=== PATIENT | female | born 1995 | race Caucasian/White ===

== ENCOUNTER 2018-02-07 00:09 | Emergency (ER) | payer SELFPAY ==
[~2018-02-07] VITALS: Ht 165.1 cm; Wt 54.6 kg
[2018-02-07 00:15] VITALS: BP 125/70; PULSE 103; RESP 16; TEMP 98.9; O2SAT 98
[2018-02-07 00:56] VITALS: BP 125/70; PULSE 103; RESP 16; TEMP 98.9; O2SAT 98
[2018-02-07] MEDS ORDERED: KETOROLAC TROMETHAMINE 30 MG/ML (IVP) VIAL IV PUSH ONE (02:30)
[2018-02-07] MEDS ORDERED: CLINDAMYCIN PHOS 600 MG/4 ML VIAL IM ONE (02:30)
[2018-02-07] MEDS ORDERED: CLINDAMYCIN PHOS 900 MG/6 ML VIAL IM ONE (02:30)
--- NOTE | 2018-02-07 03:04 | RADRPT ---
EXAM DATE: 02/07/2018 2:56 AM EDT AGE/SEX: 22 years / Female INDICATIONS: Leg swelling. CLINICAL DATA: This is the patient's initial encounter. Patient reports that signs and symptoms have been present for 1 day and indicates a pain score of 7/10. MEDICAL/SURGICAL HISTORY: . . COMPARISON: No prior exams available for comparison. TECHNIQUE: Venous ultrasound of both lower extremities was performed from the inguinal ligament to t he proximal calf. Real-time, color Doppler and spectral tracing, compression and augmentation techni ques were used. FINDINGS: There is normal compressibility of the deep venous system from the inguinal region to the proximal ca lf. No echogenic clot is seen in the lumen of the common femoral, femoral, popliteal, and posterior tibial veins. There is a normal response of the venous system to proximal and distal augmentation an d respiration. CONCLUSION: No evidence of left lower extremity DVT. Electronically signed by: Zohaib Jacob MD 02/07/2018 3:02 AM EDT
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
[2018-02-07 03:17] LABS: AUTOMATED NEUTROPHIL # 6.3 TH/MM3 (1.8-7.7); BASOPHIL % 0.2 % (0.0-2.0); EOSINOPHIL # 0.1 TH/MM3 (0-0.4); EOSINOPHIL % 0.9 % (0.0-4.0); HEMATOCRIT 35.9 % (35.0-46.0); HEMOGLOBIN 12.3 GM/DL (11.6-15.3); LYMPH % 15.6 % (9.0-44.0); LYMPHOCYTE # 1.2 TH/MM3 (1.0-4.8); MEAN CORPUSCULAR HEMOGLOBIN 29.7 PG (27.0-34.0); MEAN CORPUSCULAR HGB CONC 34.1 % (32.0-36.0); MEAN PLATELET VOLUME 7.7 FL (7.0-11.0); MONO % 3.2 % (0.0-8.0); MONOCYTE # 0.3 TH/MM3 (0-0.9); NEUT % 80.1 % (16.0-70.0); PLATELET COUNT 441 TH/MM3 (150-450); RED BLOOD COUNT 4.13 MIL/MM3 (4.00-5.30); RED CELL DISTRIBUTION WIDTH 12.8 % (11.6-17.2); WHITE BLOOD COUNT 7.9 TH/MM3 (4.0-11.0)
[2018-02-07 03:24] LABS: CHLORIDE 103 MEQ/L (98-107); SODIUM (NA) 137 MEQ/L (136-145)
[2018-02-07 03:27] LABS: CALCIUM 9.3 MG/DL (8.5-10.1)
[2018-02-07 03:28] LABS: ALBUMIN 3.3 GM/DL (3.4-5.0); BICARBONATE 25.6 MEQ/L (21.0-32.0); BLOOD UREA NITROGEN 11 MG/DL (7-18); GLUCOSE,RANDOM 86 MG/DL (74-106)
[2018-02-07 03:31] LABS: ALT (GPT) 23 U/L (9-42); AST (GOT) 24 U/L (16-38); CREATININE 0.81 MG/DL (0.50-1.00); GLOMERULAR FILTRATION RATE 90 ML/MIN (>89)
[2018-02-07 03:32] LABS: TOTAL BILIRUBIN ADULT 0.6 MG/DL (0.2-1.0); TOTAL PROTEIN 8.4 GM/DL (6.4-8.2)
[2018-02-07 03:34] LABS: ALKALINE PHOSPHATASE 72 U/L (45-117)
[2018-02-07] MEDS ORDERED: CLINDAMYCIN 600 MG/NS PREMIX 50 ML IV ONE (03:45)
--- NOTE | 2018-02-07 03:49 | RADRPT ---
EXAM DATE: 02/07/2018 3:44 AM EDT AGE/SEX: 22 years / Female INDICATIONS: Pain and swelling to left ankle. No known injury. CLINICAL DATA: This is the patient's initial encounter. Patient reports that signs and symptoms have been present for 1 week and indicates a pain score of 7/10. MEDICAL/SURGICAL HISTORY: None. None. COMPARISON: No prior exams available for comparison. FINDINGS: 3 views of left ankle. Bone alignment within normal limits. No evidence of fracture. Ankle mortise in tact. No evidence of focal bone erosion. Diffuse soft tissue swelling. CONCLUSION: Diffuse soft tissue swelling. Left ankle series otherwise within normal limits. Electronically signed by: Zohaib Jacob MD 02/07/2018 3:48 AM EDT
--- NOTE | 2018-02-07 03:52 | RADRPT ---
EXAM DATE: 02/07/2018 3:46 AM EDT AGE/SEX: 22 years / Female INDICATIONS: Pain and swelling to left foot. No known injury. CLINICAL DATA: This is the patient's initial encounter. Patient reports that signs and symptoms have been present for 1 week and indicates a pain score of 7/10. MEDICAL/SURGICAL HISTORY: None. None. COMPARISON: No prior exams available for comparison. FINDINGS: 3 views of the left foot. Bone alignment within normal limits. No evidence of fracture. Bone minerali zation within normal limits. No evidence of joint narrowing. No evidence of focal bone erosion. Diffu se soft tissue swelling. CONCLUSION: Diffuse soft tissue swelling. Otherwise within normal limits. Electronically signed by: Zohaib Jacob MD 02/07/2018 3:50 AM EDT
[2018-02-07] MEDS ORDERED: IBUP-232 PO (04:00)
[2018-02-07] MEDS ORDERED: CLIN300C5 PO (04:00)
[2018-02-07 04:04] VITALS: BP 111/64; PULSE 89; RESP 16; O2SAT 100
[2018-02-07 04:53] VITALS: BP 114/64
== END 2018-02-07 04:50 | disposition home or self-care (01) ==
LOC: PHED 00:09
DX: S93.602A Unspecified sprain of left foot, initial encounter (principal); B95.62 Methicillin resistant Staphylococcus aureus infection as the cause of diseases classified elsewhere; F12.90 Cannabis use, unspecified, uncomplicated; X58.XXXA Exposure to other specified factors, initial encounter; Z72.0 Tobacco use
CPT/HCPCS: 73610; 73630; 80053; 83605; 84703; 85025; 86403; 87040; 87070; 87186; 93971; 96365; 96375; 99285; J1885; L3260

== ENCOUNTER 2018-10-04 23:32 | Inpatient (IN) ==
[2018-10-04] MEDS ORDERED: Ibuprofen 600 MG Tablet PO ONE (23:48)
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
[2018-10-05] MEDS ORDERED: Clindamycin 900 mg/NS Premix 900 MG/50 ML PIGGYBACK IV.SIG ONE (01:15)
[2018-10-05] MEDS ORDERED: Sod Chloride 0.9% Inj 1,000 ML IV.SIG SCH (01:15)
[2018-10-05 01:46] LABS: Baso % (Auto) 0.3 % (0.0-2.0); Eos % (Auto) 0.1 % (0.0-4.0); Hemoglobin 13.4 gm/dL (11.6-15.3); Lymph % (Auto) 14.4 % (9.0-44.0); Mean Corpuscular HGB Conc 34.3 % (32.0-36.0); Mean Corpuscular Hemoglobin 28.6 pg (27.0-34.0); Mean Corpuscular Volume 83.5 fL (80.0-100.0); Mean Platelet Volume 7.7 fL (7.0-11.0); Mono # (Auto) 1.1 th/mm3 (0.0-0.9); Mono % (Auto) 7.5 % (0.0-8.0); Neut # (Auto) 10.9 th/mm3 (1.8-7.7); Neut % (Auto) 77.7 % (16.0-70.0); Platelet Count 322 th/mm3 (150-450); Red Blood Count 4.67 mil/mm3 (4.00-5.30); Red Cell Distribution Width 16.9 % (11.6-17.2); White Blood Count 14.1 th/mm3 (4.0-11.0)
[2018-10-05 02:01] LABS: Anion Gap 5 meq/L (5-15); Blood Urea Nitrogen 8 mg/dL (7-18); Calcium 8.5 mg/dL (8.5-10.1); Carbon Dioxide 25.8 meq/L (21.0-32.0); Chloride 103 meq/L (98-107); Glomerular Filtration Rate Greater Than 89 mL/min (>89); Glucose,Random 143 mg/dL (74-106); Potassium 3.4 meq/L (3.5-5.1); Sodium 134 meq/L (136-145)
[2018-10-05] MEDS ORDERED: Gadobutrol PF 2 MMOL/2 ML Vial (for RAD) IV.SIG ONE (02:38)
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
[2018-10-05] MEDS ORDERED: Acetaminophen 325 MG Tablet PO PRN (04:05)
[2018-10-05] MEDS ORDERED: Bisacodyl 10 MG Supp RECTAL PRN (04:05)
[2018-10-05] MEDS ORDERED: Naloxone Inj 0.4 MG/ML Vial IV.PUSH PRN (04:05)
[2018-10-05] MEDS ORDERED: Morphine Inj 4 MG/ML Vial IV.PUSH PRN (04:05)
[2018-10-05] MEDS: Sod Chloride 0.9% Inj 1,000 ML IV.SIG SCH ×2 (04:15→06:17)
[2018-10-05] MEDS: Sod Chloride 0.9% Inj 1,000 ML IV.CONT SCH ×2 (04:42→17:16)
[2018-10-05] MEDS: Clindamycin 900 mg/NS Premix 900 MG/50 ML PIGGYBACK IV.SIG SCH ×2 (09:22→17:54)
[2018-10-05 10:23] LABS: Bacteria,Urine Rare /hpf; Bilirubin,Urine Negative (Negative); Clarity,Urine Hazy (Clear); Color,Urine Yellow (Yellw/Straw); Glucose,Urine (UA) Negative (Negative); Leukocyte Esterase,Urine Negative (Negative); Nitrite,Urine Negative (Negative); Specific Gravity,Urine 1.024 (1.002-1.035); Squamous Epithelial Cell,Urine 1 /hpf (0-5)
[2018-10-05 10:27] LABS: Amphetamine Screen,Urine Pos (Neg); Barbiturate Screen,Urine Neg (Neg); Cannabinoid Screen,Urine Pos (Neg); Cocaine Screen,Urine Neg (Neg)
[2018-10-05 10:28] LABS: Opiate Screen,Urine Pos (Neg)
[2018-10-05] MEDS: Morphine Inj 4 MG/ML Vial IV.PUSH PRN ×4 (10:43→20:29)
[2018-10-05] MEDS: Senna/Docusate Sodium 8.6/50 MG Tablet PO SCH ×2 (10:49→20:28)
[2018-10-05 13:50] LABS: Hepatitits B Surface Antigen Nonreactive (Nonreactive)
[2018-10-05 14:20] LABS: Hepatitis A IgM Antibody Nonreactive (Nonreactive)
[2018-10-05] MEDS: Ketorolac Inj 30 MG/ML (IVP) Vial IV.PUSH PRN ×2 (17:55→23:45)
--- NOTE | 2018-10-05 20:38 | P.CONOP ---
[facility] Orthopedics Consult Note - [facility] Consult date: 10/05/18 Requesting physician: Irlanda Murillo R3 Consult reason: other (abscess) Chief complaint: Cellulitis; SIRS; IVDA R Humerus Abscess Narrative: This is a 22 year old IVDU who came to the ED with complaints of left arm pain and swelling that started 4 days ago. She was trying to inject into the arm and missed the vein. She complains of severe pain to the left upper arm. She states she has numbness and tingling to the tips of all her fingers on the left. She denies pain or numbness elsewhere. Review of Systems All other systems reviewed negative except as stated in [facility] PMFSH - History History Provided By: Patient - Medical / Surgical Hx Neg / Unobtainable Medical Problems Denied: Yes - Medical History Medical History: Medical History (Last Reviewed 10/05/18 @ 20:25 by Laila Matute MD) Patient denies significant medical history - Surgical History Surgical History: Surgical History (Last Reviewed 10/05/18 @ 20:25 by Laila Matute MD) No history of previous surgery - Family History Family History: Family History (Last Reviewed 10/05/18 @ 20:25 by Laila Matute MD) Other Family history normal - Social History I have reviewed the patient's Social History: Yes - Tobacco History Second Hand Smoke Exposure: No Tobacco Use In Past 30 Days: No Smoking Status: Never smoker Tobacco Type: Cigarettes - Alcohol History How Often Do You Have a Drink Containing Alcohol: Never - Substance Use History Substance History: Active Abuse - Substance Use Type Heroin Status: Active Route Used: Intravenously Marijuana Status: Active - Travel History Recent Travel in the [place] Within the Last 8 Weeks: No Recent Travel Out of the Country Within the Last 8 Weeks: No - Immunization History Tetanus Immunization: Never Vaccinated Hx Influenza Vaccine This Season: No Medications and Allergies Active Medications: Active Medications Al Hydroxide/Mg Hydroxide (Milk Of Magnesia Liq) 30 ml PO Q12H PRN PRN Reason: Mild Constipation Bisacodyl (Dulcolax Supp) 10 mg RECTAL DAILY PRN PRN Reason: SEVERE CONSITIPATION Sodium Chloride (Ns Inj) 1,000 mls @ 100 mls/hr IV.CONT .Q10H [facility] Last Infusion: 10/05/18 19:38 Dose: Infused Clindamycin/Sodium Chloride (Cleocin 900 Mg/Ns Premix) 900 mg in 50 mls @ 100 mls/hr IV.SIG Q8H [facility] Last Infusion: 10/05/18 19:38 Dose: Infused Ketorolac Tromethamine (Toradol Inj) 15 mg IV.PUSH Q6H PRN PRN Reason: PAIN 1-10 AND/OR FEVER >101F Stop: 10/10/18 23:59 Last Admin: 10/05/18 17:55 Dose: 15 mg Lactulose (Lactulose Liq) 30 ml PO DAILY PRN PRN Reason: SEVERE CONSITIPATION Morphine Sulfate (Morphine Inj) 2 mg IV.PUSH Q3H PRN PRN Reason: BREAKTHROUGH PAIN Morphine Sulfate (Morphine Inj) 4 mg IV.PUSH Q3H PRN PRN Reason: Pain 5-10; If Uable To Take Po Last Admin: 10/05/18 17:11 Dose: 4 mg Naloxone HCl (Narcan Inj) 0.4 mg IV.PUSH UNSCH PRN PRN Reason: SEE LABEL COMMENTS Ondansetron HCl (Zofran Inj) 4 mg IV.PUSH Q6H PRN PRN Reason: NAUSEA OR VOMITING Senna/Docusate Sodium (Mariama-Colace) 1 tab PO BID [facility] Last Admin: 10/05/18 10:49 Dose: Not Given Sennosides (Senokot) 17.2 mg PO Q12H PRN PRN Reason: Moderate Constipation Sodium Chloride (Ns Flush) 2 ml IV.FLUSH BID [facility] Last Admin: 10/05/18 10:49 Dose: 2 ml Sodium Chloride (Ns Flush) 2 ml IV.FLUSH PRN PRN PRN Reason: FLUSH AFTER USING IV ACCESS Allergies Allergy/AdvReac Type Severity Reaction Status Date / Time No Known Allergies Allergy Unverified 02/07/18 01:05 Home Medications Medication Instructions Recorded Confirmed Type No Known Home Medications 06/20/18 10/04/18 History Exam Vital signs: Vital Signs 10/04/18 23:35 10/04/18 23:37 10/05/18 01:18 Temperature 99.2 F Pulse Rate 111 H 105 H 116 H Respiratory Rate 18 20 22 Blood Pressure 133/81 135/73 125/69 Pulse Oximetry 100 97 99 10/05/18 04:13 10/05/18 05:00 10/05/18 07:17 Temperature Pulse Rate 95 H 85 91 H Respiratory Rate 22 16 18 Blood Pressure 117/55 L 118/60 113/62 Pulse Oximetry 100 99 100 10/05/18 09:00 10/05/18 12:08 10/05/18 16:10 Temperature 98.8 F 102.6 F H Pulse Rate 105 H 103 H 114 H Respiratory Rate 17 17 Blood Pressure 111/55 L 127/57 L Pulse Oximetry 96 100 Intake & Output 10/05/18 10/05/18 10/06/18 06:59 18:59 06:59 Intake Total 2049 50 / 50 1050 / 1050 Balance 2049 50 / 50 1050 / 1050 Weight 45.359 kg Intake: IV 2049 50 / 50 1050 / 1050 NS Inj 1,000 ML @ 100 mls/hr IV 1000 / 1000 .CONT .Q10H [facility] Rx#:[id number] Cleocin 900 mg/NS Premix 900 mg 50 / 50 50 / 50 50 / 50 In 50 ml @ 100 mls/hr IV.SIG Q8H [facility] Rx#:[id number] NS Inj 1,000 ML @ 2000 mls/hr 1999 / 1999 IV.SIG Q30M [facility] Rx#:[id number] Other: # Voids 2 4 # Bowel Movements 0 - Constitutional mild distress - Routine HEENT Exam Head: Present: normocephalic - Routine Neck Exam Present: supple - Routine Respiratory Exam Absent: accessory muscle use - Routine Cardiovascular Exam Present: RRR - Routine Extremities Exam Comments: left arm very tender to palpation from the antecubital fossa up to the shoulder. She has erythema and edema in this area. There is no readily palpable fluid collection nor draining wound. She is nontender about the forearm or hand. She has numbness in the fingertips but otherwise sensation is intact. Unable to move elbow or shoulder due to patient's pain level. 2+ radial pulse and motor intact distally. Remainder of extremities are unremarkable. Results - Labs Result Diagrams: 10/06/18 07:30 10/06/18 07:30 Labs: Laboratory Results - last 24 hr 10/05/18 10/05/18 10/05/18 01:26 01:26 01:26 WBC 14.1 H RBC 4.67 Hgb 13.4 Hct 39.0 MCV 83.5 MCH 28.6 MCHC 34.3 RDW 16.9 Plt Count 322 MPV 7.7 Prelim Diff (Auto) Slide review pending Neut % (Auto) 77.7 H Lymph % (Auto) 14.4 [place] % (Auto) 7.5 Eos % (Auto) 0.1 Baso % (Auto) 0.3 Neut # (Auto) 10.9 H Lymph # (Auto) 2.0 [place] # (Auto) 1.1 H Eos # (Auto) 0.0 Baso # (Auto) 0.0 WBC Differential . Diff Scan Auto diff confirmed Differential Comment . ESR 56 H Sodium 134 L Potassium 3.4 L Chloride 103 Carbon Dioxide 25.8 Anion Gap 5 BUN 8 Creatinine 0.70 Estimated GFR Greater than 89 Random Glucose 143 H Lactic Acid Calcium 8.5 C-Reactive Protein Urine Color Urine Clarity Urine pH Ur Specific [place] Urine Protein Urine Glucose (UA) Urine Ketones Urine Occult Blood Urine Nitrate Urine Bilirubin Urine Urobilinogen Ur Leukocyte Esterase Urine RBC Urine WBC Ur Squamous Epith Cells Urine Bacteria Micro UA Comment Ur Microscopic Review Urine Culture Comments Urine Opiates Screen Ur Barbiturates Screen Ur Amphetamines Screen U Benzodiazepines Scrn Urine Cocaine Screen U Cannabinoids Screen Hepatitis A IgM Ab Hep Bs Antigen Hep B Core IgM Ab Hep C IgG Ab HIV 1&2 Ab/P24 Ag 4thGn 10/05/18 10/05/18 10/05/18 01:26 03:35 10:10 WBC RBC Hgb Hct MCV MCH MCHC RDW Plt Count MPV Prelim Diff (Auto) Neut % (Auto) Lymph % (Auto) [place] % (Auto) Eos % (Auto) Baso % (Auto) Neut # (Auto) Lymph # (Auto) [place] # (Auto) Eos # (Auto) Baso # (Auto) WBC Differential Diff Scan Differential Comment ESR Sodium Potassium Chloride Carbon Dioxide Anion Gap BUN Creatinine Estimated GFR Random Glucose Lactic Acid 1.4 Calcium C-Reactive Protein 6.52 H Urine Color Yellow Urine Clarity Hazy H Urine pH 5.0 Ur Specific [place] 1.024 Urine Protein Negative Urine Glucose (UA) Negative Urine Ketones Negative Urine Occult Blood Negative Urine Nitrate Negative Urine Bilirubin Negative Urine Urobilinogen Less than 2 Ur Leukocyte Esterase Negative Urine RBC 1 Urine WBC 11 H Ur Squamous Epith Cells 1 Urine Bacteria Rare H Micro UA Comment Culture indicated Ur Microscopic Review Not Reportable Urine Culture Comments Culture indicated Urine Opiates Screen Ur Barbiturates Screen Ur Amphetamines Screen U Benzodiazepines Scrn Urine Cocaine Screen U Cannabinoids Screen Hepatitis A IgM Ab Hep Bs Antigen Hep B Core IgM Ab Hep C IgG Ab HIV 1&2 Ab/P24 Ag 4thGn 10/05/18 10/05/18 10/05/18 10:10 12:30 12:30 WBC RBC Hgb Hct MCV MCH MCHC RDW Plt Count MPV Prelim Diff (Auto) Neut % (Auto) Lymph % (Auto) [place] % (Auto) Eos % (Auto) Baso % (Auto) Neut # (Auto) Lymph # (Auto) [place] # (Auto) Eos # (Auto) Baso # (Auto) WBC Differential Diff Scan Differential Comment ESR Sodium Potassium Chloride Carbon Dioxide Anion Gap BUN Creatinine Estimated GFR Random Glucose Lactic Acid Calcium C-Reactive Protein Urine Color Urine Clarity Urine pH Ur Specific [place] Urine Protein Urine Glucose (UA) Urine Ketones Urine Occult Blood Urine Nitrate Urine Bilirubin Urine Urobilinogen Ur Leukocyte Esterase Urine RBC Urine WBC Ur Squamous Epith Cells Urine Bacteria Micro UA Comment Ur Microscopic Review Urine Culture Comments Urine Opiates Screen Pos H Ur Barbiturates Screen Neg Ur Amphetamines Screen Pos H U Benzodiazepines Scrn Neg Urine Cocaine Screen Neg U Cannabinoids Screen Pos H Hepatitis A IgM Ab Nonreactive Hep Bs Antigen Nonreactive Hep B Core IgM Ab Nonreactive Hep C IgG Ab Reactive H HIV 1&2 Ab/P24 Ag 4thGn Nonreactive - Diagnostic results Imaging: Impressions Elbow X-Ray 10/05/18 00:01 CONCLUSION: 1. No acute fracture. Humerus X-Ray 10/05/18 00:01 CONCLUSION: 1. No acute fracture. Humerus MRI 10/05/18 01:23 CONCLUSION: 1. 2.0 x 0.9 cm abscess in the anterolateral distal biceps region with regional cellulitis. 2. Subtle elbow joint effusion without definitive abnormal enhancement. 3. No evidence for osteomyelitis. Assessment and Plan - Assessment and Plan 22 year old female with left arm cellulitis and small abscess noted on CT Plan: Recommend IR drainage of abscess under image guidance. Will defer any surgical intervention at this time. Continue antibiotics - currently Clindamycin, will start vancomycin for broader spectrum coverage. Consider ID consult.
[2018-10-05] MEDS: Vancomycin Inj 1,000 MG in Sodium Chlor 0.9% Inj 250 ML IV.SIG SCH (23:45)
[2018-10-06] MEDS: Sod Chloride 0.9% Inj 1,000 ML IV.CONT SCH ×4 (01:26→23:40)
[2018-10-06] MEDS: Clindamycin 900 mg/NS Premix 900 MG/50 ML PIGGYBACK IV.SIG SCH ×3 (01:27→16:35)
[2018-10-06] MEDS: Morphine Inj 4 MG/ML Vial IV.PUSH PRN ×2 (01:29→04:43)
[2018-10-06] MEDS ORDERED: LORazepam 1 MG Tablet PO PRN (07:57)
[2018-10-06] MEDS: Senna/Docusate Sodium 8.6/50 MG Tablet PO SCH ×2 (08:05→20:50)
[2018-10-06] MEDS: Ketorolac Inj 30 MG/ML (IVP) Vial IV.PUSH PRN ×3 (08:06→20:45)
[2018-10-06 08:41] LABS: Baso % (Auto) 0.2 % (0.0-2.0); Eos % (Auto) 0.1 % (0.0-4.0); Hematocrit 35.5 % (35.0-46.0); Hemoglobin 12.1 gm/dL (11.6-15.3); Lymph % (Auto) 6.1 % (9.0-44.0); Mean Corpuscular Hemoglobin 28.8 pg (27.0-34.0); Mean Corpuscular Volume 84.5 fL (80.0-100.0); Mean Platelet Volume 7.9 fL (7.0-11.0); Mono # (Auto) 1.1 th/mm3 (0.0-0.9); Mono % (Auto) 6.4 % (0.0-8.0); Neut # (Auto) 14.5 th/mm3 (1.8-7.7); Neut % (Auto) 87.2 % (16.0-70.0); Platelet Count 343 th/mm3 (150-450); Red Cell Distribution Width 16.8 % (11.6-17.2); White Blood Count 16.6 th/mm3 (4.0-11.0)
[2018-10-06 08:59] LABS: Albumin 2.3 g/dL (3.4-5.0); Anion Gap 10 meq/L (5-15); Aspartate Aminotransferase 22 U/L (16-38); Blood Urea Nitrogen 8 mg/dL (7-18); Calcium 8.5 mg/dL (8.5-10.1); Carbon Dioxide 22.3 meq/L (21.0-32.0); Chloride 103 meq/L (98-107); Glomerular Filtration Rate Greater Than 89 mL/min (>89); Glucose,Random 114 mg/dL (74-106); Potassium 3.5 meq/L (3.5-5.1); Sodium 135 meq/L (136-145)
[2018-10-06 09:00] LABS: Alanine Aminotransferase 37 U/L (9-42)
[2018-10-06 09:02] LABS: Alkaline Phosphatase 99 U/L (45-117); Total Protein 6.9 g/dL (6.4-8.2)
[2018-10-06] MEDS ORDERED: LORazepam 0.5 MG Tablet PO PRN (09:30)
[2018-10-06] MEDS ORDERED: Vancomycin Consult Pharmacy OTHER PRN (10:04)
[2018-10-06] MEDS: Vancomycin Inj 1,000 MG in Sodium Chlor 0.9% Inj 250 ML IV.SIG SCH ×3 (10:05→23:41)
--- NOTE | 2018-10-06 10:30 | P.PNFP ---
Subjective Interval history: Patient seen and examined at bedside this morning. Patient had a fever yesterday of 102.6F and repeat blood cultures were drawn at that time. Today patient reports that she has had a hard time with going to sleep. I also did a page stating that patient was very anxious this morning and patient was given Ativan x1 of 1 mg. Ativan dose was decreased to 0.5 as needed because patient was very sleepy during exam this morning however she was responding to questions and following commands. Vital signs within normal limits this morning. No other complaints. Results - Labs Result diagrams: 10/06/18 07:30 10/06/18 07:30 Abnormal lab results 10/05/18 10/06/18 10/06/18 Range/Units 12:30 07:30 07:30 WBC 16.6 H (4.0-11.0) th/mm3 Neut % (Auto) 87.2 H (16.0-70.0) % Lymph % (Auto) 6.1 L (9.0-44.0) % Neut # (Auto) 14.5 H (1.8-7.7) th/mm3 [place] # (Auto) 1.1 H (0.0-0.9) th/mm3 Sodium 135 L (136-145) meq/L Random Glucose 114 H (74-106) mg/dL Albumin 2.3 L (3.4-5.0) g/dL Hep C IgG Ab Reactive H (Nonreactive) Short CBC 10/06/18 Range/Units 07:30 WBC 16.6 H (4.0-11.0) th/mm3 Hgb 12.1 (11.6-15.3) gm/dL Hct 35.5 (35.0-46.0) % Plt Count 343 (150-450) th/mm3 BMP 10/06/18 07:30 Sodium 135 L Potassium 3.5 Chloride 103 Carbon Dioxide 22.3 BUN 8 Creatinine 0.61 Calcium 8.5 Liver Function 10/06/18 Range/Units 07:30 Total Bilirubin 0.8 (0.2-1.0) mg/dL AST 22 (16-38) U/L ALT 37 (9-42) U/L Alkaline Phosphatase 99 (45-117) U/L Albumin 2.3 L (3.4-5.0) g/dL Physical Exam Vital signs: Vital Signs 10/05/18 12:08 10/05/18 16:10 10/05/18 20:00 Temperature 98.8 F 102.6 F H 98.3 F Pulse Rate 103 H 114 H 92 H Respiratory Rate 17 17 18 Blood Pressure 111/55 L 127/57 L 115/55 L Pulse Oximetry 96 100 100 10/06/18 00:00 10/06/18 04:00 Temperature 98.7 F 98.3 F Pulse Rate 101 H 101 H Respiratory Rate 20 18 Blood Pressure 117/71 123/69 Pulse Oximetry 100 95 Intake & Output 10/05/18 10/06/18 10/06/18 18:59 06:59 18:59 Intake Total 50 / 50 1350 / 1350 50 / 50 Output Total 3 / 3 Balance 50 / 50 1347 / 1347 50 / 50 Weight 45 kg Intake: IV 50 / 50 1350 / 1350 50 / 50 NS Inj 1,000 ML @ 100 mls/hr IV 1000 / 1000 .CONT .Q10H [facility] Rx#:[id number] Cleocin 900 mg/NS Premix 900 mg 50 / 50 100 / 100 50 / 50 In 50 ml @ 100 mls/hr IV.SIG Q8H [facility] Rx#:[id number] Vancomycin Inj 1,000 MG In NS 250 / 250 Inj 250 ML @ 250 mls/hr IV.SIG Q12H [facility] Rx#:[id number] Output: Urine 3 / 3 Other: # Voids 4 1 Date of Last Bowel Movement 10/03/18 # Bowel Movements 0 Narrative: GENERAL: 22 yo F, thin, sleepy but responding to questions and following commands SKIN: Warm and dry. ARM: Skin on left arm proximal to elbow is erythematous and entire proximal arm is tender to touch, erythema improving, erythema has regressed from demarked area. Some scratches noted on distal legs but no track sanon. MUSCULOSKELETAL: Left arm mildly swollen proximally but otherwise no MSK defects , improving. Extremities without clubbing, cyanosis, or edema. No obvious deformities. Patient maintains the left arm flexed at ~90 degrees at the elbow. Handgrip equal bilaterally. Radial artery pulse equal bilaterally 2+. ENT: No nasal bleeding or discharge. Mucous membranes pink and moist. NECK: Trachea midline. No JVD. CARDIOVASCULAR: Normal S1-S2, no murmurs on auscultation. RESPIRATORY: No accessory muscle use. Clear to auscultation bilaterally. GASTROINTESTINAL: Abdomen soft, non-tender, nondistended. Hepatic and splenic margins not palpable. NEUROLOGICAL: sleepy pt attributed this to not getting enough sleep overnight. No obvious cranial nerve deficits. Motor grossly within normal limits. Five out of 5 muscle strength in the arms and legs. Normal speech. PSYCHIATRIC: Insight poor but has capacity based on current exam to make medical decisions. Assessment and Plan - Assessment (1) Sepsis due to skin infection Code(s): L03.90 - Cellulitis, unspecified; A41.9 - Sepsis, unspecified organism Status: Acute Plan: 22-year-old female presenting with left arm cellulitis and elbow MRI showing abscess 2 cm x 0.9cm in size with trace joint effusion. Location is anterior lateral aspect of upper extremity proximal to elbow joint. Left humerus and elbow x-rays unremarkable. Evaluation for bedside I&D in the ED occurred but patient too painful for significant attempt. Patient meets sirs criteria with WBC 14K and tachycardia greater than 90 bpm thus will admit for sepsis evaluation and treatment. Her ESR is ESR 56. Lactic acid 1.4, wnl. CBC and CMP reviewed and otherwise unremarkable. Received 2 L normal saline bolus and 900 mg IV dose of clindamycin in ED. She reports concern regarding transportation from the hospital thus case management will be consulted for assistance. Clinical plan as follows: -Admitted to inpatient for IV antibiotics for abscess, meeting sepsis criteria -Monitor neuro checks every 4 hours given numbness in the distal left extremity , no other focal deficits noted at time of admission -Continue clindamycin 900 mg IV every 8 hours -Orthopedic consult for possible I&D, appreciate recommendations IR consulted for u/s guided I&D Vanc started -Occupational Therapy consult No occupational therapy recommendations upon discharge -Case management consult Urinalysis: Negative UDS: Positive for opiates, amphetamines, and cannabinoids Positive Hep C, patient informed of dx today, all questions answered -Pain control:Toradol scheduled, morphine for breakthrough -ativan 0.5mg PRN for anxiety Follow up: blood and urine cultures echo (2) Abscess of left upper extremity Code(s): L02.414 - Cutaneous abscess of left upper limb Status: Acute Plan: See plan for Sepsis due to Skin Infection (3) Cellulitis of left upper extremity Code(s): L03.114 - Cellulitis of left upper limb Status: Acute Plan: See plan for Sepsis due to Skin Infection (4) Intravenous drug abuse Code(s): F19.10 - Other psychoactive substance abuse, uncomplicated Status: Chronic Plan: Patient is chronic IV drug user and notes use of multiple skin sites for heroin , last use 10/04. She does not express any interest in quitting. -Medical management for infection -Case management for offering patient community resources if interested (5) Nutrition, metabolism, and development symptoms Code(s): R63.8 - Other symptoms and signs concerning food and fluid intake Status: Acute Plan: Fluids: IVF at 100mls/hr Electrolytes: Replete as needed Diet: regular DVT ppx: SCDs - Assessment and Plan Fluids: NS @ 100ml/hr but tolerating p.o., n.p.o. for possible procedure Electrolytes: monitor and replete as needed. Very mild hyponatremia and hypokalemia on admission, can replete with diet Nutrition: NPO on admission, regular diet after ortho evaluation DVT Prophylaxis: Early ambulation. SCDs if not ambulatory. GI Prophylaxis: None indicated PRN anti-HTN: None indicated on admission. Consider clonidine 0.1mg PO PRN for SBP > 180/ and/or DBP > 100
[2018-10-06] MEDS: LORazepam 0.5 MG Tablet PO PRN ×2 (14:08→18:20)
--- NOTE | 2018-10-06 16:34 | US ---
EXAM DATE: 10/06/2018 4:15 PM EST AGE/SEX: 22 years / Female INDICATIONS: Isolated swelling on left arm. CLINICAL DATA: This is the patient's initial encounter. Patient reports that signs and symptoms have been present for 1 day and indicates a pain score of 8/10. MEDICAL/SURGICAL HISTORY: . IVDU. MRSA. None. COMPARISON: [facility] – [place], MR HUMERUS LEFT W & W/O CONTRAST, 10/05/2018.. . FINDINGS: Grayscale and color Doppler images of the distal left humerus reveal hyperemia. There is thrombosis o f the cephalic vein with thickening of the wall. There is a fluid collection surrounding the cephalic vein within its distal aspect measuring 4.2 x 1.6 x 2.4 cm. CONCLUSION: 1. Thrombophlebitis of the cephalic vein. 2. 4.2 x 2.4 x 1.6 cm fluid collection surrounding the cephalic vein possibly relating to an abscess . Electronically signed by: Cali Magana MD Board Certified Radiologist 10/06/2018 4:32 PM EST
--- NOTE | 2018-10-06 16:56 | P.PNOP ---
Subjective Interval history: Patient is currently sedated in the room. She was reportedly medicated with Ativan. Mother at the bedside Physical Exam Vital signs: Vital Signs 10/05/18 20:00 10/06/18 00:00 10/06/18 04:00 Temperature 98.3 F 98.7 F 98.3 F Pulse Rate 92 H 101 H 101 H Respiratory Rate 18 20 18 Blood Pressure 115/55 L 117/71 123/69 Pulse Oximetry 100 100 95 10/06/18 08:00 10/06/18 09:00 10/06/18 12:00 Temperature 98.0 F 98.4 F Pulse Rate 99 H 113 H 113 H Respiratory Rate 20 20 Blood Pressure 108/57 L 116/73 Pulse Oximetry 98 100 Intake & Output 10/05/18 10/06/18 10/06/18 18:59 06:59 18:59 Intake Total 50 / 50 1350 / 1350 300 / 300 Output Total 3 / 3 Balance 50 / 50 1347 / 1347 300 / 300 Weight 45 kg Intake: IV 50 / 50 1350 / 1350 300 / 300 NS Inj 1,000 ML @ 100 mls/hr IV 1000 / 1000 .CONT .Q10H [facility] Rx#:[id number] Cleocin 900 mg/NS Premix 900 mg 50 / 50 100 / 100 50 / 50 In 50 ml @ 100 mls/hr IV.SIG Q8H [facility] Rx#:[id number] Vancomycin Inj 1,000 MG In NS 250 / 250 250 / 250 Inj 250 ML @ 250 mls/hr IV.SIG Q12H [facility] Rx#:[id number] Output: Urine 3 / 3 Other: # Voids 4 1 Date of Last Bowel Movement 10/03/18 10/03/18 # Bowel Movements 0 - Routine Extremities Exam Comments: Left upper extremity has swelling and redness in the region of the antecubital fossa. There is some proximal erythema noted as well. Compartments are soft. 2+ radial pulse. Brisk capillary refill distally. Results - Labs CBC & Chem 7: 10/06/18 07:30 10/06/18 07:30 Laboratory Results - last 24 hr 10/06/18 10/06/18 07:30 07:30 WBC 16.6 H RBC 4.20 Hgb 12.1 Hct 35.5 MCV 84.5 MCH 28.8 MCHC 34.0 RDW 16.8 Plt Count 343 MPV 7.9 Neut % (Auto) 87.2 H Lymph % (Auto) 6.1 L [place] % (Auto) 6.4 Eos % (Auto) 0.1 Baso % (Auto) 0.2 Neut # (Auto) 14.5 H Lymph # (Auto) 1.0 [place] # (Auto) 1.1 H Eos # (Auto) 0.0 Baso # (Auto) 0.0 WBC Differential . Differential Comment Auto diff final Sodium 135 L Potassium 3.5 Chloride 103 Carbon Dioxide 22.3 Anion Gap 10 BUN 8 Creatinine 0.61 Estimated GFR Greater than 89 Random Glucose 114 H Calcium 8.5 Total Bilirubin 0.8 AST 22 ALT 37 Alkaline Phosphatase 99 Total Protein 6.9 Albumin 2.3 L Microbiology 10/05/18 10:10 Clean Catch Urine Urine Culture - Preliminary No growth in 24 hours 10/05/18 18:45 Blood - Peripheral Aerobic Blood Culture - Preliminary No growth in 1 day 10/05/18 18:45 Blood - Peripheral Anaerobic Blood Culture - Preliminary No growth in 1 day 10/05/18 18:50 Blood - Peripheral Aerobic Blood Culture - Preliminary No growth in 1 day 10/05/18 18:50 Blood - Peripheral Anaerobic Blood Culture - Preliminary No growth in 1 day 10/05/18 01:21 Blood - Peripheral Aerobic Blood Culture - Preliminary No growth in 1 day 10/05/18 01:21 Blood - Peripheral Anaerobic Blood Culture - Preliminary No growth in 1 day 10/05/18 01:26 Blood - Peripheral Aerobic Blood Culture - Preliminary No growth in 1 day 10/05/18 01:26 Blood - Peripheral Anaerobic Blood Culture - Preliminary No growth in 1 day - Imaging Impressions Soft Tissue Ultrasound 10/06/18 15:43 CONCLUSION: 1. Thrombophlebitis of the cephalic vein. 2. 4.2 x 2.4 x 1.6 cm fluid collection surrounding the cephalic vein possibly relating to an abscess. Assessment and Plan - Assessment and Plan 22 year old female with left arm cellulitis and small abscess from IV drug abuse Plan: I spoke to Dr. Magana from interventional radiology regarding aspiration. Dr. Magana recommended a ultrasound to see if the fluid collection would be amenable to aspiration. I have ordered this stat. Continue antibiotics - currently Clindamycin, will start vancomycin for broader spectrum coverage.
--- NOTE | 2018-10-06 19:06 | P.RAD ---
Post Procedure Progress Note - Pre Procedure Diagnosis (1) Thrombophlebitis arm - Post Procedure Diagnosis (1) Thrombophlebitis arm - Procedure Information Procedure Date: 10/06/18 Supervising Radiologist: Cali Magana Jr, MD Proceduralist/Assist: René Cornelius Estimated blood loss (mL): 0 Anesthesia: Local - Plan of Activity Patient to Unit: Nursing Unit Patient Condition: Good See PACS Report for procedural detail/treatment. Drainage Procedure left Abscess Drainage Bengali Tube Size: 0 Fluid Description: Purulent Findings: Left antecubital fossa abscess surrounding thrombophlebitis of distal cephalic vein. Too small to accept a drain. US decompression yielded 7mL of purulent fluid. Much of the collection is a phlegmon and not liquified. Sent for cx Plan: Await cx results.
[2018-10-06] MEDS: traZODone 50 MG Tablet PO SCH (20:48)
[2018-10-07] MEDS: Clindamycin 900 mg/NS Premix 900 MG/50 ML PIGGYBACK IV.SIG SCH ×2 (00:17→13:11)
[2018-10-07] MEDS: Ketorolac Inj 30 MG/ML (IVP) Vial IV.PUSH PRN ×3 (04:11→21:53)
[2018-10-07] MEDS: Sod Chloride 0.9% Inj 1,000 ML IV.CONT SCH ×3 (05:40→21:56)
[2018-10-07 07:45] LABS: Baso % (Auto) 0.4 % (0.0-2.0); Eos % (Auto) 0.2 % (0.0-4.0); Hematocrit 34.5 % (35.0-46.0); Lymph # (Auto) 1.1 th/mm3 (1.0-4.8); Lymph % (Auto) 11.4 % (9.0-44.0); Mean Corpuscular HGB Conc 34.8 % (32.0-36.0); Mean Corpuscular Hemoglobin 29.4 pg (27.0-34.0); Mean Corpuscular Volume 84.6 fL (80.0-100.0); Mean Platelet Volume 7.3 fL (7.0-11.0); Mono # (Auto) 0.7 th/mm3 (0.0-0.9); Mono % (Auto) 7.2 % (0.0-8.0); Neut # (Auto) 7.6 th/mm3 (1.8-7.7); Neut % (Auto) 80.8 % (16.0-70.0); Platelet Count 338 th/mm3 (150-450); Red Blood Count 4.07 mil/mm3 (4.00-5.30); Red Cell Distribution Width 16.6 % (11.6-17.2); White Blood Count 9.4 th/mm3 (4.0-11.0)
[2018-10-07 08:04] LABS: Glomerular Filtration Rate Greater Than 89 mL/min (>89)
[2018-10-07 08:28] LABS: Platelet Estimate Normal (Normal); Platelet Morphology Normal (Normal)
[2018-10-07] MEDS: LORazepam 0.5 MG Tablet PO PRN ×3 (08:43→16:50)
--- NOTE | 2018-10-07 08:45 | P.PNFP ---
Subjective Interval history: Patient was seen at bedside this morning. There were no acute events overnight. Patient reports that although she feels pain in her left arm, it is somewhat improved. Patient still unable to bend or flex her arm due to the pain. Patient also reports some pain over the right side of her chest that she reports started on admission. She believes this is due to to the patient was positioning her body due to the pain in her left arm. She also reports that the pain is significant whenever she palpates her chest. Patient reports that she is slowly withdrawing it is hard and has requested something for her withdrawals. Patient denies any subjective fevers, chills, shortness of breath , chest pain, nausea, or vomiting. All questions were answered to the patient' s satisfaction. Results - Labs Result diagrams: 10/07/18 06:54 10/07/18 06:54 Abnormal lab results 10/06/18 10/07/18 10/07/18 Range/Units 07:30 06:54 06:54 Hct 34.5 L (35.0-46.0) % Neut % (Auto) 80.8 H (16.0-70.0) % Keratocytes 1+ H (None) Sodium 135 L (136-145) meq/L Creatinine 0.49 L (0.50-1.00) mg/dL Random Glucose 114 H (74-106) mg/dL Albumin 2.3 L (3.4-5.0) g/dL Short CBC 10/07/18 Range/Units 06:54 WBC 9.4 (4.0-11.0) th/mm3 Hgb 12.0 (11.6-15.3) gm/dL Hct 34.5 L (35.0-46.0) % Plt Count 338 (150-450) th/mm3 BMP 10/06/18 10/07/18 07:30 06:54 Sodium 135 L Potassium 3.5 Chloride 103 Carbon Dioxide 22.3 BUN 8 Creatinine 0.61 0.49 L Calcium 8.5 Liver Function 10/06/18 Range/Units 07:30 Total Bilirubin 0.8 (0.2-1.0) mg/dL AST 22 (16-38) U/L ALT 37 (9-42) U/L Alkaline Phosphatase 99 (45-117) U/L Albumin 2.3 L (3.4-5.0) g/dL - Imaging Impressions Soft Tissue Ultrasound 10/06/18 15:43 CONCLUSION: 1. Thrombophlebitis of the cephalic vein. 2. 4.2 x 2.4 x 1.6 cm fluid collection surrounding the cephalic vein possibly relating to an abscess. Physical Exam Vital signs: Vital Signs 10/06/18 09:00 10/06/18 12:00 10/06/18 16:00 Temperature 98.4 F 99.2 F Pulse Rate 113 H 113 H 119 H Respiratory Rate 20 20 Blood Pressure 116/73 113/62 Pulse Oximetry 100 99 10/06/18 20:00 10/06/18 20:50 10/07/18 00:00 Temperature 100.4 F H Pulse Rate 120 H 124 H 119 H Respiratory Rate 17 Blood Pressure 114/64 Pulse Oximetry 98 10/07/18 00:16 10/07/18 04:00 10/07/18 05:00 Temperature 99.4 F 100.7 F H Pulse Rate 116 H 119 H 106 H Respiratory Rate 24 20 Blood Pressure 125/60 Pulse Oximetry 98 98 Intake & Output 10/06/18 10/07/18 10/07/18 18:59 06:59 18:59 Intake Total 710 / 710 1302 / 1302 Balance 710 / 710 1302 / 1302 Weight 50.1 kg Intake: IV 350 / 350 1302 / 1302 NS Inj 1,000 ML @ 100 mls/hr IV 1000 / 1000 .CONT .Q10H [facility] Rx#:[id number] Cleocin 900 mg/NS Premix 900 mg 100 / 100 52 / 52 In 50 ml @ 100 mls/hr IV.SIG Q8H [facility] Rx#:[id number] Vancomycin Inj 1,000 MG In NS 250 / 250 250 / 250 Inj 250 ML @ 250 mls/hr IV.SIG Q12H [facility] Rx#:[id number] Oral 360 / 360 Other: # Voids 4 Date of Last Bowel Movement 10/03/18 10/01/18 # Bowel Movements 0 Narrative: GENERAL: 22 yo F, lying comfortably in bed. SKIN: Warm and dry. ARM: Skin on left arm proximal to elbow is erythematous and entire proximal arm is tender to touch, erythema improving, erythema has regressed from demarked area. Some scratches noted on distal legs but no track sanon. Erythema faint but appears to have extended inferiorly down the medial aspect of her arm but difficult to distinguish from skin tone. MUSCULOSKELETAL: Left arm mildly swollen proximally but otherwise no MSK defects , improving. Extremities without clubbing, cyanosis, or edema. No obvious deformities. Patient maintains the left arm flexed at ~90 degrees at the elbow. Remains neurovascularly intact with good capillary refill. CARDIOVASCULAR: Normal S1-S2, no murmurs on auscultation. Patient's pain reproducible on self palpation at bedside. RESPIRATORY: No accessory muscle use. Clear to auscultation bilaterally. GASTROINTESTINAL: Abdomen soft, non-tender, nondistended. Hepatic and splenic margins not palpable. NEUROLOGICAL: Awake and alert. No obvious cranial nerve deficits. Motor grossly within normal limits. PSYCHIATRIC: Insight poor but has capacity based on current exam to make medical decisions. Assessment and Plan - Assessment (1) Sepsis due to skin infection Code(s): L03.90 - Cellulitis, unspecified; A41.9 - Sepsis, unspecified organism Status: Acute Plan: 22-year-old female presenting with left arm cellulitis and elbow MRI showing abscess 2 cm x 0.9cm in size with trace joint effusion. Location is anterior lateral aspect of upper extremity proximal to elbow joint. Left humerus and elbow x-rays unremarkable. -S/p day 1 of aspiration of 7ml of prurulent fluid positive for MRSA Plan: -Fluid positive for MRSA -Continue Vancomycin -Discontinue clindamycin -Patient to undergo I&D today -Occupational Therapy consult No occupational therapy recommendations upon discharge -Case management consult Urinalysis: Negative UDS: Positive for opiates, amphetamines, and cannabinoids Positive Hep C, patient informed of dx today, all questions answered -Pain control:Toradol scheduled, morphine for breakthrough -ativan 0.5mg PRN for anxiety Follow up: blood and urine cultures echo (2) Abscess of left upper extremity Code(s): L02.414 - Cutaneous abscess of left upper limb Status: Acute Plan: See plan for Sepsis due to Skin Infection (3) Cellulitis of left upper extremity Code(s): L03.114 - Cellulitis of left upper limb Status: Acute Plan: See plan for Sepsis due to Skin Infection (4) Intravenous drug abuse Code(s): F19.10 - Other psychoactive substance abuse, uncomplicated Status: Chronic Plan: Patient is chronic IV drug user and notes use of multiple skin sites for heroin , last use 10/04. She does not express any interest in quitting. -Medical management for infection -Case management for offering patient community resources if interested (5) Hepatitis C antibody positive in blood Code(s): R76.8 - Other specified abnormal immunological findings in serum Status: Acute Plan: IVDU positive for Hep C on admission. -Viral load ordered -Genotype ordered -GI consult no appropriate at this time as patient is a current IVDU (6) Nutrition, metabolism, and development symptoms Code(s): R63.8 - Other symptoms and signs concerning food and fluid intake Status: Acute Plan: Fluids: IVF at 100mls/hr Electrolytes: Replete as needed Diet: regular DVT ppx: SCDs - Assessment and Plan Fluids: NS @ 100ml/hr but tolerating p.o., n.p.o. for possible procedure Electrolytes: monitor and replete as needed. Very mild hyponatremia and hypokalemia on admission, can replete with diet Nutrition: NPO on admission, regular diet after ortho evaluation DVT Prophylaxis: Early ambulation. SCDs if not ambulatory. GI Prophylaxis: None indicated PRN anti-HTN: None indicated on admission. Consider clonidine 0.1mg PO PRN for SBP > 180/ and/or DBP > 100
[2018-10-07] MEDS ORDERED: Pharmacy Ordered Lab Info OTHER ONE (09:45)
[2018-10-07] MEDS ORDERED: Phenylephrine/NS 1000 MCG/10ML Syringe IV.PUSH ONE (10:02)
[2018-10-07] MEDS ORDERED: Glycopyrrolate Inj 1 MG/5 ML Syringe IV.PUSH ONE (10:02)
[2018-10-07] MEDS ORDERED: Lidocaine PF 1% Inj 5 ML Syringe OTHER ONE (10:02)
[2018-10-07] MEDS ORDERED: ceFAZolin 2 GM Premix Inj 2 GM/50 ML PIGGYBACK IV.SIG ONE (11:28)
[2018-10-07] MEDS ORDERED: SOD CHLORIDE 0.9% IRRIGATION ONE ×3 (11:30)
[2018-10-07] MEDS ORDERED: GENTAMICIN IRRIGATION ONE ×3 (11:30)
[2018-10-07] MEDS ORDERED: fentaNYL Citrate Inj 100 MCG/2 ML Ampul ONE ×2 (11:54→11:55)
[2018-10-07] MEDS ORDERED: *Meperidine Inj 25 MG/ML Vial PERIprocedural Use ONLY ONE (11:59)
[2018-10-07] MEDS: Vancomycin Inj 1,000 MG in Sodium Chlor 0.9% Inj 250 ML IV.SIG SCH (12:04)
[2018-10-07] MEDS ORDERED: *morphine SULFATE 10 MG/ML PERIprocedure ONLY ONE ×3 (12:16→12:28)
--- NOTE | 2018-10-07 13:08 | IR ---
EXAM DATE: 10/06/2018 7:23 PM EST AGE/SEX: 22 years / Female INDICATIONS: Patient presents with left arm abscess in need of a Drainage Abscess with culture order s. CLINICAL DATA: This is the patient's initial encounter. Patient reports that signs and symptoms have been present for 1 day and indicates a pain score of 10/10. MEDICAL/SURGICAL HISTORY: None. None. COMPARISON: No prior exams available for comparison. IMAGE SERIES: 8 RADIATION DOSE: SITE: Left Arm FLUID: Total volume of 7 cc of elaine fluid was removed. Fluid was sent to lab for ordered studies. DEVICE(S): . . PROCEDURE : 1. Ultrasound guidance for abscess drainage. 2. Abscess drainage. I reviewed the patient's prior ultrasound and MRI. The pocket of complex fluid surrounding the distal cephalic vein in the left antecubital fossa was targeted during this aspiration. Ultrasound images w ere performed at the time of the drainage. There is insufficient room for placement of a drainage cat heter and therefore decompression is planned. The risks, benefits and alternatives to the procedure w ere explained and verbal and written consent was obtained. The site was prepped in sterile fashion. Full sterile technique was used, including cap, mask, sterile gloves and gown and a large sterile sh eet. Hand hygiene and 2% chlorhexidine and/or betadine/alcohol prep was utilized per protocol for cu taneous antisepsis. The skin and subcutaneous tissues were infiltrated with local anesthetic solutio n. Sterile gel and sterile probe cover were utilized for ultrasound guidance. Ultrasound imaging was used to select the most appropriate approach for drainage. A lateral approach was taken with an 18-gauge needle. Aspiration yielded 7 mL of bloody purulent mate rial. Incidental note is made of thrombosis of the cephalic vein. Residual heterogeneity to the surro unding tissue is noted consistent with phlegmon. CONCLUSION: 1. Uncomplicated aspiration of a left antecubital fossa abscess yielding 7 mL of purulent material. Samples were sent for microbiological evaluation. Incidental note is also made of thrombophlebitis of the distal cephalic vein.. Electronically signed by: Cali Magana MD Board Certified Radiologist 10/07/2018 1:07 PM EST
[2018-10-07] MEDS: Senna/Docusate Sodium 8.6/50 MG Tablet PO SCH ×2 (13:10→21:52)
--- NOTE | 2018-10-07 13:47 | MP ---
cc: Quincy Turner MD DATE OF OPERATION: 10/07/2018 PREOPERATIVE DIAGNOSIS: Left upper extremity necrotizing infection, abscess, status post IV drug abuse. POSTOPERATIVE DIAGNOSES: Left upper extremity necrotizing infection, abscess, status post IV drug abuse. PROCEDURE PERFORMED: Incision, drainage, irrigation and debridement, left upper extremity, 30 cm debridement. SURGEON: Quincy Turner MD FREIGHT FORWARDER: RAJESH Cuellar ANESTHESIA: General. ESTIMATED BLOOD LOSS: 100 mL TOURNIQUET TIME: Zero. COMPLICATIONS: None. INDICATIONS: This patient is a 22-year-old female who has a history of IV drug abuse and developed a severe infection involving the left upper extremity. She presented to [facility] Emergency Room, was admitted to the medical service. She has been on IV antibiotic therapy. In spite of that treatment, she had progression of infection with elevated white blood cell count and elevated temperature. She did undergo interventional radiology aspiration, but her infection continued to progress. The patient was counseled as to the risks, benefits and alternatives of the above-named proposed operative procedure. She did wish to proceed with surgery. DETAILS OF PROCEDURE: Written consent was obtained. The patient was identified by name, taken to the operating room, placed supine on the operating table. After general anesthesia, the patient was given 2 g of IV Ancef. The left upper extremity was prepped and draped using isopropyl alcohol and Hibiclens solution and ChloraPrep solution. After a timeout was performed, a longitudinal incision was made over the anterior aspect of the left arm and extended across the antecubital fossa in an oblique fashion and then distally into the forearm. There was copious amount of purulent fluid noted to come from beneath the fascia, particularly surrounding the antecubital fossa. The cephalic vein was completely thrombosed with surrounding pus, and this was excised and debrided. An extensive debridement of skin, subcutaneous tissue, fascia, and some muscle was involved. The surgical wound was thoroughly irrigated with 4 L of sterile saline and Pulsavac antibiotic-impregnated solution. The incision was then closed with 3-0 nylon suture. Sterile dressing was applied. The patient tolerated the procedure well with no intraoperative complications noted. MD SAMIA Bermudez/jonathan , 11:30 AM , 11:34 AM
[2018-10-07] MEDS: Morphine Inj 4 MG/ML Vial IV.PUSH PRN (16:36)
[2018-10-07 17:40] LABS: Anion Gap 6 meq/L (5-15); Blood Urea Nitrogen 8 mg/dL (7-18); Carbon Dioxide 23.8 meq/L (21.0-32.0); Chloride 106 meq/L (98-107); Glomerular Filtration Rate Greater Than 89 mL/min (>89); Glucose,Random 174 mg/dL (74-106); Sodium 136 meq/L (136-145)
[2018-10-07] MEDS: Vancomycin Inj 750 MG in Sodium Chlor 0.9% Inj 250 ML IV.SIG SCH (18:22)
[2018-10-07] MEDS: traZODone 50 MG Tablet PO SCH (21:52)
[2018-10-08] MEDS: Vancomycin Inj 750 MG in Sodium Chlor 0.9% Inj 250 ML IV.SIG SCH ×2 (02:18→11:55)
[2018-10-08] MEDS: Ketorolac Inj 30 MG/ML (IVP) Vial IV.PUSH PRN ×3 (04:09→19:20)
[2018-10-08] MEDS: Sod Chloride 0.9% Inj 1,000 ML IV.CONT SCH ×4 (06:20→23:29)
--- NOTE | 2018-10-08 08:41 | P.PNFP ---
Subjective Interval history: No acute events overnight Patient examined while laying in bed with both parents at bedside Reports severe right arm pain exacerbated by movement and touch, reports that toradol does not alleviate pain at all and is requesting for morphine. Patient also reports difficulty sleeping but last night's sleep medication helped a little. <Corine De La O - 10/08/18 11:43> Results - Labs Result diagrams: 10/08/18 08:41 10/08/18 08:41 <Izabel Bradley - 10/08/18 21:23> Abnormal lab results 10/08/18 10/08/18 Range/Units 08:41 08:41 RBC 3.96 L (4.00-5.30) mil/mm3 Hgb 11.3 L (11.6-15.3) gm/dL Hct 33.4 L (35.0-46.0) % Neut % (Auto) 70.6 H (16.0-70.0) % Angelina % (Auto) 8.5 H (0.0-8.0) % Chloride 109 H (98-107) meq/L Calcium 7.9 L (8.5-10.1) mg/dL Short CBC 10/08/18 Range/Units 08:41 WBC 7.4 (4.0-11.0) th/mm3 Hgb 11.3 L (11.6-15.3) gm/dL Hct 33.4 L (35.0-46.0) % Plt Count 382 (150-450) th/mm3 BMP 10/08/18 08:41 Sodium 142 Potassium 3.6 Chloride 109 H Carbon Dioxide 25.5 BUN 9 Creatinine 0.53 Calcium 7.9 L <Izabel Bradley - 10/08/18 21:23> Abnormal lab results 10/07/18 10/07/18 10/07/18 Range/Units 10:32 16:10 16:10 Random Glucose 174 H (74-106) mg/dL Calcium 8.0 L (8.5-10.1) mg/dL Vancomycin Trough 2.6 L (5.0-10.0) mcg/mL Hepatitis C Antibody Reactive H (Nonreactive) BMP 10/07/18 16:10 Sodium 136 Potassium 4.0 Chloride 106 Carbon Dioxide 23.8 BUN 8 Creatinine 0.65 Calcium 8.0 L <Corine De La O - 10/08/18 08:41> - Imaging Impressions Abscess Drainage 10/06/18 00:00 CONCLUSION: 1. Uncomplicated aspiration of a left antecubital fossa abscess yielding 7 mL of purulent material. Samples were sent for microbiological evaluation. Incidental note is also made of thrombophlebitis of the distal cephalic vein.. <Corine De La O - 10/08/18 08:41> Physical Exam Vital signs: Vital Signs 10/07/18 23:45 10/08/18 00:00 10/08/18 04:00 Temperature 97.8 F Pulse Rate 93 H 92 H 93 H Respiratory Rate 17 Blood Pressure 92/52 L Pulse Oximetry 99 10/08/18 04:10 10/08/18 08:11 10/08/18 12:00 Temperature 98 F 98.5 F 98.0 F Pulse Rate 94 H 98 H 101 H Respiratory Rate 17 17 18 Blood Pressure 116/68 123/66 121/59 L Pulse Oximetry 100 99 96 10/08/18 16:00 10/08/18 20:20 Temperature 100.0 F H 100.8 F H Pulse Rate 112 H 120 H Respiratory Rate 16 17 Blood Pressure 133/67 130/59 L Pulse Oximetry 94 L 98 Intake & Output 10/08/18 10/08/18 10/09/18 06:59 18:59 06:59 Intake Total 520 / 520 2197.5 / 2197.5 Balance 520 / 520 2197.5 / 2197.5 Weight 55.4 kg Intake: IV 520 / 520 1357.5 / 1357.5 NS Inj 1,000 ML @ 100 mls/hr IV 1000 / 1000 .CONT .Q10H [facility] Rx#:[id number] Vancomycin Inj 750 MG In NS Inj 520 / 520 257.5 / 257.5 250 ML @ 250 mls/hr IV.SIG Q8H [facility] Rx#:[id number] Vancomycin Inj 500 MG In NS Inj 100 / 100 100 ML @ 200 mls/hr IV.SIG ONCE ONE Rx#:[id number] Oral 840 / 840 Other: # Voids 2 # Bowel Movements 0 <Izabel Bradley - 10/08/18 21:23> Vital Signs 10/07/18 11:41 10/07/18 12:00 10/07/18 12:15 Temperature 98.4 F Pulse Rate 98 H 74 108 H Respiratory Rate 20 20 18 Blood Pressure 111/62 111/72 108/71 Pulse Oximetry 100 100 100 10/07/18 12:30 10/07/18 16:00 10/07/18 20:00 Temperature 98.2 F 97.6 F 98.1 F Pulse Rate 101 H 74 88 Respiratory Rate 18 20 16 Blood Pressure 97/53 L 100/59 L 105/56 L Pulse Oximetry 98 97 98 10/07/18 23:45 10/08/18 00:00 10/08/18 04:00 Temperature 97.8 F Pulse Rate 93 H 92 H 93 H Respiratory Rate 17 Blood Pressure 92/52 L Pulse Oximetry 99 10/08/18 04:10 Temperature 98 F Pulse Rate 94 H Respiratory Rate 17 Blood Pressure 116/68 Pulse Oximetry 100 Intake & Output 10/07/18 10/08/18 10/08/18 18:59 06:59 18:59 Intake Total 2300 / 2300 520 / 520 600 / 600 Output Total 100 / 100 Balance 2200 / 2200 520 / 520 600 / 600 Weight 55.4 kg Intake: IV 1300 / 1300 520 / 520 NS Inj 1,000 ML @ 100 mls/hr IV 1000 / 1000 .CONT .Q10H [facility] Rx#:[id number] Vancomycin Inj 1,000 MG In NS 250 / 250 Inj 250 ML @ 250 mls/hr IV.SIG Q12H [facility] Rx#:[id number] Vancomycin Inj 750 MG In NS Inj 520 / 520 250 ML @ 250 mls/hr IV.SIG Q8H [facility] Rx#:[id number] Ancef 2 GM Premix Inj 2 gm In 50 / 50 50 ml @ 100 mls/hr IV.SIG ONCE ONE Rx#:[id number] Oral 0 / 0 600 / 600 Anesthesia Amount 1000 / 1000 Output: Estimated Blood Loss 100 / 100 Other: # Voids 2 4 # Bowel Movements 0 <Corine De La O - 10/08/18 08:41> Narrative: GENERAL: 22yo thin female, lying in bed, obviously uncomfortable but in no acute distress SKIN: Warm and dry. ARM: Left arm covered in Reynaldo wrap bandage status post incision and drainage. Left hand more edematous compared to right hand. MUSCULOSKELETAL: Extremities without clubbing, cyanosis, or edema. No obvious deformities. Patient maintains the left arm flexed at ~90 degrees at the elbow. Remains neurovascularly intact with good capillary refill. No Homans sign CARDIOVASCULAR: Normal S1-S2, no murmurs on auscultation. Patient's pain reproducible on self palpation at bedside. RESPIRATORY: No accessory muscle use. Clear to auscultation bilaterally. GASTROINTESTINAL: Abdomen soft, non-tender, nondistended. Hepatic and splenic margins not palpable. NEUROLOGICAL: Awake and alert. No obvious cranial nerve deficits. Motor grossly within normal limits. PSYCHIATRIC: Insight poor but has capacity based on current exam to make medical decisions. <Corine De La O - 10/08/18 11:43> Assessment and Plan - Assessment (1) Sepsis due to skin infection Code(s): L03.90 - Cellulitis, unspecified; A41.9 - Sepsis, unspecified organism Status: Acute (2) Abscess of left upper extremity Code(s): L02.414 - Cutaneous abscess of left upper limb Status: Acute (3) Cellulitis of left upper extremity Code(s): L03.114 - Cellulitis of left upper limb Status: Acute (4) Intravenous drug abuse Code(s): F19.10 - Other psychoactive substance abuse, uncomplicated Status: Chronic (5) Hepatitis C antibody positive in blood Code(s): R76.8 - Other specified abnormal immunological findings in serum Status: Acute (6) Nutrition, metabolism, and development symptoms Code(s): R63.8 - Other symptoms and signs concerning food and fluid intake Status: Acute <Izabel Bradley - 10/08/18 21:23> (1) Sepsis due to skin infection Code(s): L03.90 - Cellulitis, unspecified; A41.9 - Sepsis, unspecified organism Status: Acute Plan: Status post incision and drainage of left upper extremity postop day 1 Left arm fluid culture was positive for MRSA, currently on vancomycin 750 mg. Currently awaiting sensitivities for antibiotic outpatient management Wound culture preliminary results show positive for MRSA Blood cultures negative times 3 days Urine culture showed mixed gram-positive manuel, most likely due to contamination WBC within normal limits ID consult placed for further recommendations (2) Cellulitis of left upper extremity Code(s): L03.114 - Cellulitis of left upper limb Status: Acute Plan: See plan for sepsis above (3) Intravenous drug abuse Code(s): F19.10 - Other psychoactive substance abuse, uncomplicated Status: Chronic Plan: Currently on Toradol and morphine for breakthrough pain, morphine increased from 2mg to 3mg prn As needed and Ativan for anxiety Trazodone for sleep difficulties (4) Nutrition, metabolism, and development symptoms Code(s): R63.8 - Other symptoms and signs concerning food and fluid intake Status: Acute Plan: On regular diet NS IVF 100 mls per hour Replete electrolytes as needed (5) Hepatitis C antibody positive in blood Code(s): R76.8 - Other specified abnormal immunological findings in serum Status: Acute Plan: Hep C viral load and genotype results pending Patient was made aware of results yesterday <Corine De La O - 10/08/18 16:39> - Assessment and Plan Fluids: NS @ 100ml/hr but tolerating p.o., n.p.o. for possible procedure Electrolytes: monitor and replete as needed. Very mild hyponatremia and hypokalemia on admission, can replete with diet Nutrition: NPO on admission, regular diet after ortho evaluation DVT Prophylaxis: Early ambulation. SCDs if not ambulatory. GI Prophylaxis: None indicated PRN anti-HTN: None indicated on admission. Consider clonidine 0.1mg PO PRN for SBP > 180/ and/or DBP > 100 <Corine De La O 10/08/18 11:51> - Attending Attestation Patient seen and examined, discussed with medical student and resident team. I agree with assessment and management as documented and discussed with me. I personally performed and verify documentation in the note. Pt seen while getting echo exam. She reports pain in arm, which is controlled OK with morphine and toradol. Will consult ID, given purulent material found down to the muscle in the op report from procedure yesterday. Continue vancomycin at this time unless otherwise directed by ID. <Izabel Bradley - 10/08/18 21:23>
[2018-10-08] MEDS ORDERED: Morphine Sulfate Inj 2 MG/ML Vial IV.PUSH ONE (09:00)
[2018-10-08] MEDS: Morphine Inj 4 MG/ML Vial IV.PUSH PRN ×4 (09:20→21:00)
[2018-10-08] MEDS ORDERED: Pharmacy Ordered Lab Info OTHER ONE (09:45)
[2018-10-08 10:09] LABS: Baso % (Auto) 0.5 % (0.0-2.0); Eos # (Auto) 0.1 th/mm3 (0.0-0.4); Eos % (Auto) 1.2 % (0.0-4.0); Hematocrit 33.4 % (35.0-46.0); Hemoglobin 11.3 gm/dL (11.6-15.3); Lymph # (Auto) 1.4 th/mm3 (1.0-4.8); Lymph % (Auto) 19.2 % (9.0-44.0); Mean Corpuscular HGB Conc 33.7 % (32.0-36.0); Mean Corpuscular Hemoglobin 28.5 pg (27.0-34.0); Mean Corpuscular Volume 84.5 fL (80.0-100.0); Mean Platelet Volume 7.8 fL (7.0-11.0); Mono # (Auto) 0.6 th/mm3 (0.0-0.9); Mono % (Auto) 8.5 % (0.0-8.0); Neut # (Auto) 5.3 th/mm3 (1.8-7.7); Neut % (Auto) 70.6 % (16.0-70.0); Platelet Count 382 th/mm3 (150-450); Red Blood Count 3.96 mil/mm3 (4.00-5.30); Red Cell Distribution Width 16.2 % (11.6-17.2); White Blood Count 7.4 th/mm3 (4.0-11.0)
[2018-10-08 10:38] LABS: Anion Gap 8 meq/L (5-15); Blood Urea Nitrogen 9 mg/dL (7-18); Calcium 7.9 mg/dL (8.5-10.1); Carbon Dioxide 25.5 meq/L (21.0-32.0); Chloride 109 meq/L (98-107); Glomerular Filtration Rate Greater Than 89 mL/min (>89); Glucose,Random 80 mg/dL (74-106); Potassium 3.6 meq/L (3.5-5.1); Sodium 142 meq/L (136-145)
[2018-10-08] MEDS: LORazepam 0.5 MG Tablet PO PRN ×2 (11:03→19:20)
[2018-10-08] MEDS: Senna/Docusate Sodium 8.6/50 MG Tablet PO SCH ×2 (11:25→20:59)
--- NOTE | 2018-10-08 13:53 | P.PNOP ---
Subjective Interval history: painful Physical Exam Vital signs: Vital Signs 10/07/18 16:00 10/07/18 20:00 10/07/18 23:45 Temperature 97.6 F 98.1 F 97.8 F Pulse Rate 74 88 93 H Respiratory Rate 20 16 17 Blood Pressure 100/59 L 105/56 L 92/52 L Pulse Oximetry 97 98 99 10/08/18 00:00 10/08/18 04:00 10/08/18 04:10 Temperature 98 F Pulse Rate 92 H 93 H 94 H Respiratory Rate 17 Blood Pressure 116/68 Pulse Oximetry 100 10/08/18 08:11 10/08/18 12:00 Temperature 98.5 F 98.0 F Pulse Rate 98 H 101 H Respiratory Rate 17 18 Blood Pressure 123/66 121/59 L Pulse Oximetry 99 96 Intake & Output 10/07/18 10/08/18 10/08/18 18:59 06:59 18:59 Intake Total 2300 / 2300 520 / 520 1600 / 1600 Output Total 100 / 100 Balance 2200 / 2200 520 / 520 1600 / 1600 Weight 55.4 kg Intake: IV 1300 / 1300 520 / 520 1000 / 1000 NS Inj 1,000 ML @ 100 mls/hr IV 1000 / 1000 1000 / 1000 .CONT .Q10H [facility] Rx#:[id number] Vancomycin Inj 1,000 MG In NS 250 / 250 Inj 250 ML @ 250 mls/hr IV.SIG Q12H [facility] Rx#:[id number] Vancomycin Inj 750 MG In NS Inj 520 / 520 250 ML @ 250 mls/hr IV.SIG Q8H [facility] Rx#:[id number] Ancef 2 GM Premix Inj 2 gm In 50 / 50 50 ml @ 100 mls/hr IV.SIG ONCE ONE Rx#:[id number] Oral 0 / 0 600 / 600 Anesthesia Amount 1000 / 1000 Output: Estimated Blood Loss 100 / 100 Other: # Voids 2 4 # Bowel Movements 0 Narrative: LUE dressing c/d/i nvi cap refill Results - Labs CBC & Chem 7: 10/08/18 08:41 10/08/18 08:41 Laboratory Results - last 24 hr 10/07/18 10/07/18 10/08/18 16:10 16:10 08:41 WBC 7.4 RBC 3.96 L Hgb 11.3 L Hct 33.4 L MCV 84.5 MCH 28.5 MCHC 33.7 RDW 16.2 Plt Count 382 MPV 7.8 Neut % (Auto) 70.6 H Lymph % (Auto) 19.2 [place] % (Auto) 8.5 H Eos % (Auto) 1.2 Baso % (Auto) 0.5 Neut # (Auto) 5.3 Lymph # (Auto) 1.4 [place] # (Auto) 0.6 Eos # (Auto) 0.1 Baso # (Auto) 0.0 WBC Differential . Differential Comment Auto diff final Sodium 136 Potassium 4.0 Chloride 106 Carbon Dioxide 23.8 Anion Gap 6 BUN 8 Creatinine 0.65 Estimated GFR Greater than 89 Random Glucose 174 H Calcium 8.0 L Vancomycin Trough Hepatitis C Antibody Reactive H 10/08/18 10/08/18 08:41 11:05 WBC RBC Hgb Hct MCV MCH MCHC RDW Plt Count MPV Neut % (Auto) Lymph % (Auto) [place] % (Auto) Eos % (Auto) Baso % (Auto) Neut # (Auto) Lymph # (Auto) [place] # (Auto) Eos # (Auto) Baso # (Auto) WBC Differential Differential Comment Sodium 142 Potassium 3.6 Chloride 109 H Carbon Dioxide 25.5 Anion Gap 8 BUN 9 Creatinine 0.53 Estimated GFR Greater than 89 Random Glucose 80 Calcium 7.9 L Vancomycin Trough 8.9 Hepatitis C Antibody Microbiology 10/07/18 11:05 Wound - Arm Fungal Smear - Final No fungal elements seen 10/07/18 11:05 Wound - Arm Gram Stain - Final 10/07/18 11:05 Wound - Arm Wound Culture - Preliminary S. aureus MRSA 10/05/18 18:45 Blood - Peripheral Aerobic Blood Culture - Preliminary No growth in 3 days 10/05/18 18:45 Blood - Peripheral Anaerobic Blood Culture - Preliminary No growth in 3 days 10/05/18 18:50 Blood - Peripheral Aerobic Blood Culture - Preliminary No growth in 3 days 10/05/18 18:50 Blood - Peripheral Anaerobic Blood Culture - Preliminary No growth in 3 days 10/05/18 01:21 Blood - Peripheral Aerobic Blood Culture - Preliminary No growth in 3 days 10/05/18 01:21 Blood - Peripheral Anaerobic Blood Culture - Preliminary No growth in 3 days 10/05/18 01:26 Blood - Peripheral Aerobic Blood Culture - Preliminary No growth in 3 days 10/05/18 01:26 Blood - Peripheral Anaerobic Blood Culture - Preliminary No growth in 3 days 10/06/18 19:00 Fluid - Other Gram Stain - Final 10/06/18 19:00 Fluid - Other Body Fluid Culture - Final S. aureus MRSA 10/05/18 10:10 Clean Catch Urine Urine Culture - Final 10-50,000 cfu/mL mixed gram positive manuel (probable contaminants) Assessment and Plan - Ortho Post Op Day # 1 - Assessment and Plan 22 year old female with left arm cellulitis and small abscess from IV drug abuse Plan: s/p I&D LUE POD#1 ROM as tolerated start daily dressing changes POD#2 cultures - MRSA cont iv abx per ID
--- NOTE | 2018-10-08 18:32 | P.CONID ---
History of Present Illness Service: ID Consult date: 10/08/18 Requesting Physician: Josep Garay Reason for Consult: VDU s/p of I&D of Left arm abscess, MRSA positive Primary Care Provider: UNKNOWN Chief Complaint: left arm pain History of Present Illness: 22 yo female with IVDU developped severe pain, redness and swelling of LUE after shooting heroine in it Underwent IR aspiration followed by formal I+D OP findings: abscess, (clx + for MRSA), op report reviewd; + some necrotic muscels were debrided by surgeon, completely thrombosed vein SHe c/o sever pain and is indistress 2/2 pain in LUE Also started to have fever up to 101.9 Her WBC dropped fro 14K to 7K Pt is on vancomycin, her vanco levels were very low , PANFILO to vanco is 2 PMFSH - History History Provided By: Patient - Medical / Surgical Hx Neg / Unobtainable Medical Problems Denied: Yes - Medical History Medical History: Medical History (Last Updated 10/08/18 @ 10:13 by Amrita Hall) History of MRSA infection Onset Date: ~10/06/18 Patient denies significant medical history - Surgical History Surgical History: Surgical History (Last Reviewed 10/05/18 @ 20:25 by Laila Matute MD) No history of previous surgery - Family History Family History: Family History (Last Reviewed 10/08/18 @ 09:39 by Lala Hernandez) Other Family history normal - Tobacco History Second Hand Smoke Exposure: No Tobacco Use In Past 30 Days: No Smoking Status: Never smoker Tobacco Type: Cigarettes - Alcohol History How Often Do You Have a Drink Containing Alcohol: Never - Substance Use History Substance History: Active Abuse - Substance Use Type Heroin Status: Active Route Used: Intravenously Marijuana Status: Active - Travel History Recent Travel in the [place] Within the Last 8 Weeks: No Recent Travel Out of the Country Within the Last 8 Weeks: No - Immunization History Tetanus Immunization: Never Vaccinated Hx Influenza Vaccine This Season: No Medications and Allergies Active Medications: Active Medications Al Hydroxide/Mg Hydroxide (Milk Of Magnsandra Liq) 30 ml PO Q12H PRN PRN Reason: Mild Constipation Bisacodyl (Dulcolax Supp) 10 mg RECTAL DAILY PRN PRN Reason: SEVERE CONSITIPATION Clonidine HCl (Catapres) 0.1 mg PO Q6H PRN PRN Reason: RESTLESSNESS Vancomycin HCl 1,250 mg/ (Sodium Chloride) 262.5 mls @ 250 mls/hr IV.SIG Q8H [facility] Sodium Chloride (Ns Inj) 1,000 mls @ 100 mls/hr IV.CONT .Q10H [facility] Last Admin: 10/08/18 13:55 Dose: Not Given Ketorolac Tromethamine (Toradol Inj) 15 mg IV.PUSH Q6H PRN PRN Reason: PAIN 1-10 AND/OR FEVER >101F Stop: 10/10/18 23:59 Last Admin: 10/08/18 11:04 Dose: 15 mg Lactulose (Lactulose Liq) 30 ml PO DAILY PRN PRN Reason: SEVERE CONSITIPATION Lorazepam (Ativan) 0.5 mg PO Q4H PRN PRN Reason: ANXIETY Last Admin: 10/08/18 11:03 Dose: 0.5 mg Miscellaneous Information ([facility] Ordered [facility] Info) 1 each OTHER ONCE ONE Stop: 10/09/18 13:46 Morphine Sulfate (Morphine Inj) 3 mg IV.PUSH Q3H PRN PRN Reason: BREAKTHROUGH PAIN Last Admin: 10/08/18 17:22 Dose: 3 mg Naloxone HCl (Narcan Inj) 0.4 mg IV.PUSH UNSCH PRN PRN Reason: SEE LABEL COMMENTS Ondansetron HCl (Zofran Inj) 4 mg IV.PUSH Q6H PRN PRN Reason: NAUSEA OR VOMITING Pharmacy Profile Note (Vancomycin Consult Pharmacy) 1 each OTHER UNSCH PRN PRN Reason: Pharmacy to dose Senna/Docusate Sodium (Mariama-Colace) 1 tab PO BID [facility] Last Admin: 10/08/18 11:25 Dose: Not Given Sennosides (Senokot) 17.2 mg PO Q12H PRN PRN Reason: Moderate Constipation Sodium Chloride (Ns Flush) 2 ml IV.FLUSH BID [facility] Last Admin: 10/08/18 11:25 Dose: 2 ml Sodium Chloride (Ns Flush) 2 ml IV.FLUSH PRN PRN PRN Reason: FLUSH AFTER USING IV ACCESS Trazodone HCl (Desyrel) 50 mg PO HS [facility] Last Admin: 10/07/18 21:52 Dose: 50 mg Allergies Allergy/AdvReac Type Severity Reaction Status Date / Time No Known Allergies Allergy Unverified 02/07/18 01:05 Home Medications Medication Instructions Recorded Confirmed Type No Known Home Medications 06/20/18 10/04/18 History Exam Vital signs: Vital Signs 10/07/18 20:00 10/07/18 23:45 10/08/18 00:00 Temperature 98.1 F 97.8 F Pulse Rate 88 93 H 92 H Respiratory Rate 16 17 Blood Pressure 105/56 L 92/52 L Pulse Oximetry 98 99 10/08/18 04:00 10/08/18 04:10 10/08/18 08:11 Temperature 98 F 98.5 F Pulse Rate 93 H 94 H 98 H Respiratory Rate 17 17 Blood Pressure 116/68 123/66 Pulse Oximetry 100 99 10/08/18 12:00 10/08/18 16:00 Temperature 98.0 F 100.0 F H Pulse Rate 101 H 112 H Respiratory Rate 18 16 Blood Pressure 121/59 L 133/67 Pulse Oximetry 96 94 L Intake & Output 10/07/18 10/08/18 10/08/18 18:59 06:59 18:59 Intake Total 2300 / 2300 520 / 520 1957.5 / 1957.5 Output Total 100 / 100 Balance 2200 / 2200 520 / 520 1957.5 / 1957.5 Weight 55.4 kg Intake: IV 1300 / 1300 520 / 520 1357.5 / 1357.5 NS Inj 1,000 ML @ 100 mls/hr IV 1000 / 1000 1000 / 1000 .CONT .Q10H [facility] Rx#:[id number] Vancomycin Inj 1,000 MG In NS 250 / 250 Inj 250 ML @ 250 mls/hr IV.SIG Q12H [facility] Rx#:[id number] Vancomycin Inj 750 MG In NS Inj 520 / 520 257.5 / 257.5 250 ML @ 250 mls/hr IV.SIG Q8H [facility] Rx#:[id number] Vancomycin Inj 500 MG In NS Inj 100 / 100 100 ML @ 200 mls/hr IV.SIG ONCE ONE Rx#:[id number] Ancef 2 GM Premix Inj 2 gm In 50 / 50 50 ml @ 100 mls/hr IV.SIG ONCE ONE Rx#:[id number] Oral 0 / 0 600 / 600 Anesthesia Amount 1000 / 1000 Output: Estimated Blood Loss 100 / 100 Other: # Voids 2 4 # Bowel Movements 0 - Constitutional moderate distress (2/2 pain), average body habitus - Routine HEENT Exam Head: Present: normocephalic, atraumatic Eye: Present: EOMI, PERRL ENT: Present: mucous membranes moist, oropharynx clear - Routine Neck Exam Present: supple, full ROM. Absent: JVD, lymphadenopathy - Routine Chest/Breast/Axilla Exam Axillae: Absent: lymphadenopathy - Routine Respiratory Exam Present: CTA bilaterally. Absent: accessory muscle use, respiratory distress - Routine Cardiovascular Exam Present: RRR, S1, S2. Absent: murmur, gallop, rubs - Routine Abdominal Exam Present: soft, normoactive bowel sounds. Absent: tenderness, distended - Routine Extremities Exam Comments: LUE with surg dressing inplace distally to dressing hand is edematous lanre, but free of neurovascular deficit No prox edema Dressing is intact - Routine Skin Exam Present: warm. Absent: cyanosis, rash - Routine Neurological Exam Present: alert, oriented X3, CN II-XII intact. Absent: sensory deficit, motor deficit - Routine Psychiatric Exam Present: cooperative, anxious Comments: teraful Results - Labs CBC & Chem 7: 10/08/18 08:41 10/08/18 08:41 Labs: Laboratory Results - last 24 hr 10/07/18 10/08/18 10/08/18 16:10 08:41 08:41 WBC 7.4 RBC 3.96 L Hgb 11.3 L Hct 33.4 L MCV 84.5 MCH 28.5 MCHC 33.7 RDW 16.2 Plt Count 382 MPV 7.8 Neut % (Auto) 70.6 H Lymph % (Auto) 19.2 [place] % (Auto) 8.5 H Eos % (Auto) 1.2 Baso % (Auto) 0.5 Neut # (Auto) 5.3 Lymph # (Auto) 1.4 [place] # (Auto) 0.6 Eos # (Auto) 0.1 Baso # (Auto) 0.0 WBC Differential . Differential Comment Auto diff final Sodium 142 Potassium 3.6 Chloride 109 H Carbon Dioxide 25.5 Anion Gap 8 BUN 9 Creatinine 0.53 Estimated GFR Greater than 89 Random Glucose 80 Calcium 7.9 L Vancomycin Trough Hepatitis C Antibody Reactive H 10/08/18 11:05 WBC RBC Hgb Hct MCV MCH MCHC RDW Plt Count MPV Neut % (Auto) Lymph % (Auto) [place] % (Auto) Eos % (Auto) Baso % (Auto) Neut # (Auto) Lymph # (Auto) [place] # (Auto) Eos # (Auto) Baso # (Auto) WBC Differential Differential Comment Sodium Potassium Chloride Carbon Dioxide Anion Gap BUN Creatinine Estimated GFR Random Glucose Calcium Vancomycin Trough 8.9 Hepatitis C Antibody - Imaging Elbow X-Ray 10/05/18 00:01 CONCLUSION: 1. No acute fracture. Humerus X-Ray 10/05/18 00:01 CONCLUSION: 1. No acute fracture. Humerus MRI 10/05/18 01:23 CONCLUSION: 1. 2.0 x 0.9 cm abscess in the anterolateral distal biceps region with regional cellulitis. 2. Subtle elbow joint effusion without definitive abnormal enhancement. 3. No evidence for osteomyelitis. Abscess Drainage 10/06/18 00:00 CONCLUSION: 1. Uncomplicated aspiration of a left antecubital fossa abscess yielding 7 mL of purulent material. Samples were sent for microbiological evaluation. Incidental note is also made of thrombophlebitis of the distal cephalic vein.. Soft Tissue Ultrasound 10/06/18 15:43 CONCLUSION: 1. Thrombophlebitis of the cephalic vein. 2. 4.2 x 2.4 x 1.6 cm fluid collection surrounding the cephalic vein possibly relating to an abscess. Assessment and Plan - Plan IVDU 2.0 x 0.9 cm abscess in the anterolateral Left distal biceps region with regional cellulitis. Abscess 2/2 MRSA sp I+D Persistent pain and worsening fever Cont high dose vanco keep levels 15-20 She is febrile and not ready for dc further rec's to follow
[2018-10-08] MEDS: traZODone 50 MG Tablet PO SCH (20:59)
[2018-10-08] MEDS: Vancomycin Inj 1,250 MG in Sodium Chlor 0.9% Inj 250 ML IV.SIG SCH (20:59)
--- NOTE | 2018-10-08 21:21 | ECHRPT ---
Indication: sepsis poss endocarditis CONCLUSIONS Normal left ventricular size. Wall thickness is normal. The left ventricular systolic function is normal with an estimated ejection fraction in the range of 60-65%.. The estimated pulmonary arterial pressure is 34 mmHg. There is mild tricuspid valve regurgitation. BP: / HR: Rhythm: MEASUREMENTS (Male / Female) Normal Values Technical Quality: 2D ECHO LV Diastolic Diameter PLAX 4.1 cm 4.2 - 5.9 / 3.9 - 5.3 cm LV Systolic Diameter PLAX 3.2 cm IVS Diastolic Thickness 0.7 cm 0.6 - 1.0 / 0.6 - 0.9 cm LVPW Diastolic Thickness 0.9 cm 0.6 - 1.0 / 0.6 - 0.9 cm LV Relative Wall Thickness 0.4 RV Internal Dim ED PLAX 2.0 cm LVOT Diameter 1.8 cm Aortic Root Diameter 2.5 cm LA Systolic Diameter LX 3.2 cm 3.0 - 4.0 / 2.7 - 3.8 cm M-MODE Aortic Root Diameter MM 2.8 cm LA Systolic Diameter MM 3.3 cm LA Ao Ratio MM 1.2 AV Cusp Separation MM 2.0 cm DOPPLER AV Peak Velocity 143.0 cm/s AV Peak Gradient 8.2 mmHg LVOT Peak Velocity 139.0 cm/s LVOT Peak Gradient 7.7 mmHg AV Area Cont Eq pk 2.5 cm Mitral E Point Velocity 115.0 cm/s Mitral A Point Velocity 83.4 cm/s Mitral E to A Ratio 1.4 TR Peak Velocity 243.0 cm/s TR Peak Gradient 23.6 mmHg Right Atrial Pressure 10.0 mmHg Pulmonary Artery Systolic Pressu 33.6 mmHg Right Ventricular Systolic Press 33.6 mmHg PV Peak Velocity 130.0 cm/s PV Peak Gradient 6.8 mmHg FINDINGS LEFT VENTRICLE Normal left ventricular size. Wall thickness is normal. The left ventricular systolic function is normal with an estimated ejection fraction in the range of 60-65%. RIGHT VENTRICLE Normal right ventricular size and systolic function. LEFT ATRIUM The left atrial size is normal. RIGHT ATRIUM The right atrial size is normal. ATRIAL SEPTUM Normal atrial septal thickness without atrial level shunting by limited color doppler interrogation. AORTA The aortic root and proximal ascending aorta are normal in size on limited imaging. MITRAL VALVE Structurally normal mitral valve. No mitral valve stenosis or regurgitation. AORTIC VALVE Trileaflet aortic valve. No aortic valve stenosis or regurgitation. TRICUSPID VALVE The estimated pulmonary arterial pressure is 34 mmHg. There is mild tricuspid valve regurgitation. PULMONARY VALVE No pulmonary valve regurgitation or stenosis. VESSELS The inferior vena cava is normal in size. PERICARDIUM No pericardial effusion. Luis Song MD (Electronically Signed) Final Date:08 October 2018 21:20
[2018-10-09] MEDS: Ketorolac Inj 30 MG/ML (IVP) Vial IV.PUSH PRN ×4 (00:21→20:14)
[2018-10-09] MEDS: LORazepam 0.5 MG Tablet PO PRN ×5 (00:22→21:57)
[2018-10-09] MEDS ORDERED: Acetaminophen 500 MG Tablet PO ONE (00:37)
[2018-10-09] MEDS ORDERED: Sod Chloride 0.9% Inj 1,000 ML IV.SIG SCH (00:45)
[2018-10-09] MEDS: Morphine Inj 4 MG/ML Vial IV.PUSH PRN ×4 (05:43→21:57)
[2018-10-09] MEDS: Vancomycin Inj 1,250 MG in Sodium Chlor 0.9% Inj 250 ML IV.SIG SCH ×3 (05:46→21:54)
[2018-10-09 07:14] LABS: Glomerular Filtration Rate Greater Than 89 mL/min (>89)
--- NOTE | 2018-10-09 08:43 | P.PNOP ---
Subjective Interval history: pain improving. feeling a little better LUE. Physical Exam Vital signs: Vital Signs 10/08/18 12:00 10/08/18 16:00 10/08/18 20:00 Temperature 98.0 F 100.0 F H Pulse Rate 101 H 112 H 120 H Respiratory Rate 18 16 Blood Pressure 121/59 L 133/67 Pulse Oximetry 96 94 L 10/08/18 20:20 10/08/18 23:25 10/09/18 00:00 Temperature 100.8 F H 101.9 F H Pulse Rate 120 H 122 H 117 H Respiratory Rate 17 17 Blood Pressure 130/59 L 124/60 Pulse Oximetry 98 98 10/09/18 04:00 10/09/18 04:15 10/09/18 08:00 Temperature 98.1 F 98.4 F Pulse Rate 88 89 96 H Respiratory Rate 17 18 Blood Pressure 108/63 127/66 Pulse Oximetry 98 99 Intake & Output 10/08/18 10/09/18 10/09/18 18:59 06:59 18:59 Intake Total 2197.5 / 2197.5 2765.0 / 2765.0 Balance 2197.5 / 2197.5 2765.0 / 2765.0 Weight 55.8 kg Intake: IV 1357.5 / 1357.5 2525.0 / 2525.0 NS Inj 1,000 ML @ 100 mls/hr IV 1000 / 1000 1000 / 1000 .CONT .Q10H [facility] Rx#:[id number] NS Inj 1,000 ML @ 1000 mls/hr 1000 / 1000 IV.SIG BOLUS [facility] Rx#:[id number] Vancomycin Inj 1,250 MG In NS 257.5 / 257.5 525.0 / 525.0 Inj 250 ML @ 250 mls/hr IV.SIG Q8H [facility] Rx#:[id number] Vancomycin Inj 500 MG In NS Inj 100 / 100 100 ML @ 200 mls/hr IV.SIG ONCE ONE Rx#:[id number] Oral 840 / 840 240 / 240 Other: # Voids 2 4 # Bowel Movements 0 0 Narrative: in bed, nad dressing removed. sutures intact mild drainage no erythema, much improved nvi Results - Labs CBC & Chem 7: 10/08/18 08:41 10/09/18 05:15 Laboratory Results - last 24 hr 10/08/18 10/08/1819 08:41 08:41 11:05 WBC 7.4 RBC 3.96 L Hgb 11.3 L Hct 33.4 L MCV 84.5 MCH 28.5 MCHC 33.7 RDW 16.2 Plt Count 382 MPV 7.8 Neut % (Auto) 70.6 H Lymph % (Auto) 19.2 [place] % (Auto) 8.5 H Eos % (Auto) 1.2 Baso % (Auto) 0.5 Neut # (Auto) 5.3 Lymph # (Auto) 1.4 [place] # (Auto) 0.6 Eos # (Auto) 0.1 Baso # (Auto) 0.0 WBC Differential . Differential Comment Auto diff final Sodium 142 Potassium 3.6 Chloride 109 H Carbon Dioxide 25.5 Anion Gap 8 BUN 9 Creatinine 0.53 Estimated GFR Greater than 89 Random Glucose 80 Lactic Acid Calcium 7.9 L Vancomycin Trough 8.9 10/09/18 10/09/18 03:45 05:15 WBC RBC Hgb Hct MCV MCH MCHC RDW Plt Count MPV Neut % (Auto) Lymph % (Auto) [place] % (Auto) Eos % (Auto) Baso % (Auto) Neut # (Auto) Lymph # (Auto) [place] # (Auto) Eos # (Auto) Baso # (Auto) WBC Differential Differential Comment Sodium Potassium Chloride Carbon Dioxide Anion Gap BUN Creatinine 0.44 L Estimated GFR Greater than 89 Random Glucose Lactic Acid 1.5 Calcium Vancomycin Trough Microbiology 10/07/18 11:05 Wound - Arm Acid Fast Bacilli Smear - Final No acid fast bacilli seen 10/07/18 11:05 Wound - Arm Fungal Smear - Final No fungal elements seen 10/07/18 11:05 Wound - Arm Gram Stain - Final 10/07/18 11:05 Wound - Arm Wound Culture - Preliminary S. aureus MRSA 10/05/18 18:45 Blood - Peripheral Aerobic Blood Culture - Preliminary No growth in 3 days 10/05/18 18:45 Blood - Peripheral Anaerobic Blood Culture - Preliminary No growth in 3 days 10/05/18 18:50 Blood - Peripheral Aerobic Blood Culture - Preliminary No growth in 3 days 10/05/18 18:50 Blood - Peripheral Anaerobic Blood Culture - Preliminary No growth in 3 days 10/05/18 01:21 Blood - Peripheral Aerobic Blood Culture - Preliminary No growth in 3 days 10/05/18 01:21 Blood - Peripheral Anaerobic Blood Culture - Preliminary No growth in 3 days 10/05/18 01:26 Blood - Peripheral Aerobic Blood Culture - Preliminary No growth in 3 days 10/05/18 01:26 Blood - Peripheral Anaerobic Blood Culture - Preliminary No growth in 3 days 10/06/18 19:00 Fluid - Other Gram Stain - Final 10/06/18 19:00 Fluid - Other Body Fluid Culture - Final S. aureus MRSA Assessment and Plan - Ortho Post Op Day # 2 - Assessment and Plan 22 year old female with left arm cellulitis and small abscess from IV drug abuse Plan: s/p I&D LUE POD#2 ROM as tolerated start daily dressing changes POD#2 - I changed today cultures - MRSA cont iv abx per ID no spreading erythema ortho stable f/up dr. velazco 2 weeks
[2018-10-09 09:42] LABS: Baso % (Auto) 0.3 % (0.0-2.0); Eos # (Auto) 0.3 th/mm3 (0.0-0.4); Eos % (Auto) 5.3 % (0.0-4.0); Hematocrit 31.4 % (35.0-46.0); Hemoglobin 10.6 gm/dL (11.6-15.3); Lymph # (Auto) 1.3 th/mm3 (1.0-4.8); Lymph % (Auto) 19.9 % (9.0-44.0); Mean Corpuscular HGB Conc 33.9 % (32.0-36.0); Mean Corpuscular Volume 85.6 fL (80.0-100.0); Mean Platelet Volume 7.1 fL (7.0-11.0); Mono # (Auto) 0.7 th/mm3 (0.0-0.9); Mono % (Auto) 10.4 % (0.0-8.0); Neut # (Auto) 4.2 th/mm3 (1.8-7.7); Neut % (Auto) 64.1 % (16.0-70.0); Platelet Count 376 th/mm3 (150-450); Red Blood Count 3.67 mil/mm3 (4.00-5.30); Red Cell Distribution Width 16.1 % (11.6-17.2); White Blood Count 6.6 th/mm3 (4.0-11.0)
[2018-10-09 09:58] LABS: Albumin 1.7 g/dL (3.4-5.0); Anion Gap 7 meq/L (5-15); Aspartate Aminotransferase 28 U/L (16-38); Blood Urea Nitrogen 5 mg/dL (7-18); Calcium 7.9 mg/dL (8.5-10.1); Carbon Dioxide 25.2 meq/L (21.0-32.0); Chloride 108 meq/L (98-107); Glomerular Filtration Rate Greater Than 89 mL/min (>89); Glucose,Random 84 mg/dL (74-106); Potassium 3.6 meq/L (3.5-5.1); Sodium 140 meq/L (136-145)
[2018-10-09 09:59] LABS: Alanine Aminotransferase 36 U/L (9-42)
[2018-10-09 10:01] LABS: Alkaline Phosphatase 82 U/L (45-117); Total Protein 5.7 g/dL (6.4-8.2)
--- NOTE | 2018-10-09 12:09 | P.PNFP ---
Subjective Interval history: Overnight events: sepsis alert due to tachycardia. Patient received 1L bolus and tylenol. Ordered blood cultures and lactic acid, which came back 1.5 Patient examined today while laying in bed with mother at bedside. Patient reports improved pain control, recently received morphine dose. Also reports increased ROM on left fingers, but still unable to move entire left arm. Denies dizziness, SOB, cough, abdominal pain, n/v. <JaironCorine - 10/09/18 12:09> Results - Labs Result diagrams: 10/09/18 09:09 10/09/18 09:09 <Izabel Bradley - 10/09/18 20:56> Abnormal lab results 10/09/18 10/09/18 10/09/18 Range/Units 05:15 09:09 09:09 RBC 3.67 L (4.00-5.30) mil/mm3 Hgb 10.6 L (11.6-15.3) gm/dL Hct 31.4 L (35.0-46.0) % [place] % (Auto) 10.4 H (0.0-8.0) % Eos % (Auto) 5.3 H (0.0-4.0) % Chloride 108 H (98-107) meq/L BUN 5 L (7-18) mg/dL Creatinine 0.44 L 0.43 L (0.50-1.00) mg/dL Calcium 7.9 L (8.5-10.1) mg/dL Total Protein 5.7 L D (6.4-8.2) g/dL Albumin 1.7 L (3.4-5.0) g/dL Vancomycin Trough (5.0-10.0) mcg/mL 10/09/18 Range/Units 13:04 RBC (4.00-5.30) mil/mm3 Hgb (11.6-15.3) gm/dL Hct (35.0-46.0) % [place] % (Auto) (0.0-8.0) % Eos % (Auto) (0.0-4.0) % Chloride (98-107) meq/L BUN (7-18) mg/dL Creatinine (0.50-1.00) mg/dL Calcium (8.5-10.1) mg/dL Total Protein (6.4-8.2) g/dL Albumin (3.4-5.0) g/dL Vancomycin Trough 14.7 H (5.0-10.0) mcg/mL Short CBC 10/09/18 Range/Units 09:09 WBC 6.6 (4.0-11.0) th/mm3 Hgb 10.6 L (11.6-15.3) gm/dL Hct 31.4 L (35.0-46.0) % Plt Count 376 (150-450) th/mm3 BMP 10/09/18 10/09/18 05:15 09:09 Sodium 140 Potassium 3.6 Chloride 108 H Carbon Dioxide 25.2 BUN 5 L Creatinine 0.44 L 0.43 L Calcium 7.9 L Liver Function 10/09/18 Range/Units 09:09 Total Bilirubin 0.3 (0.2-1.0) mg/dL AST 28 (16-38) U/L ALT 36 (9-42) U/L Alkaline Phosphatase 82 (45-117) U/L Albumin 1.7 L (3.4-5.0) g/dL <Izabel Bradley - 10/09/18 20:56> Abnormal lab results 10/09/18 10/09/18 10/09/18 Range/Units 05:15 09:09 09:09 RBC 3.67 L (4.00-5.30) mil/mm3 Hgb 10.6 L (11.6-15.3) gm/dL Hct 31.4 L (35.0-46.0) % [place] % (Auto) 10.4 H (0.0-8.0) % Eos % (Auto) 5.3 H (0.0-4.0) % Chloride 108 H (98-107) meq/L BUN 5 L (7-18) mg/dL Creatinine 0.44 L 0.43 L (0.50-1.00) mg/dL Calcium 7.9 L (8.5-10.1) mg/dL Total Protein 5.7 L D (6.4-8.2) g/dL Albumin 1.7 L (3.4-5.0) g/dL Short CBC 10/09/18 Range/Units 09:09 WBC 6.6 (4.0-11.0) th/mm3 Hgb 10.6 L (11.6-15.3) gm/dL Hct 31.4 L (35.0-46.0) % Plt Count 376 (150-450) th/mm3 BMP 10/09/18 10/09/18 05:15 09:09 Sodium 140 Potassium 3.6 Chloride 108 H Carbon Dioxide 25.2 BUN 5 L Creatinine 0.44 L 0.43 L Calcium 7.9 L Liver Function 10/09/18 Range/Units 09:09 Total Bilirubin 0.3 (0.2-1.0) mg/dL AST 28 (16-38) U/L ALT 36 (9-42) U/L Alkaline Phosphatase 82 (45-117) U/L Albumin 1.7 L (3.4-5.0) g/dL <NgCorine - 10/09/18 12:09> Physical Exam Vital signs: Vital Signs 10/08/18 23:25 10/09/18 00:00 10/09/18 04:00 Temperature 101.9 F H Pulse Rate 122 H 117 H 88 Respiratory Rate 17 Blood Pressure 124/60 Pulse Oximetry 98 10/09/18 04:15 10/09/18 08:00 10/09/18 12:00 Temperature 98.1 F 98.4 F Pulse Rate 89 102 H 98 H Respiratory Rate 17 18 Blood Pressure 108/63 127/66 Pulse Oximetry 98 99 10/09/18 12:10 10/09/18 16:00 10/09/18 16:35 Temperature 98.9 F 98.9 F Pulse Rate 104 H 101 H 101 H Respiratory Rate 18 18 Blood Pressure 118/59 L 123/55 L Pulse Oximetry 100 100 Intake & Output 10/09/18 10/09/18 10/10/18 06:59 18:59 06:59 Intake Total 2765.0 / 2765.0 1962.5 / 1962.5 1000 / 1000 Output Total 952 / 952 Balance 2765.0 / 2765.0 1010.5 / 1010.5 1000 / 1000 Weight 55.8 kg Intake: IV 2525.0 / 2525.0 1262.5 / 1262.5 1000 / 1000 NS Inj 1,000 ML @ 100 mls/hr IV 1000 / 1000 1000 / 1000 1000 / 1000 .CONT .Q10H [facility] Rx#:[id number] NS Inj 1,000 ML @ 1000 mls/hr 1000 / 1000 IV.SIG BOLUS [facility] Rx#:[id number] Vancomycin Inj 1,250 MG In NS 525.0 / 525.0 262.5 / 262.5 Inj 250 ML @ 250 mls/hr IV.SIG Q8H [facility] Rx#:[id number] Oral 240 / 240 700 / 700 Output: Urine 950 / 950 Urine/Stool Mix 2 / 2 Other: # Voids 4 1 # Bowel Movements 0 <Vey,Izabel - 10/09/18 20:56> Vital Signs 10/08/18 16:00 10/08/18 20:00 10/08/18 20:20 Temperature 100.0 F H 100.8 F H Pulse Rate 112 H 120 H 120 H Respiratory Rate 16 17 Blood Pressure 133/67 130/59 L Pulse Oximetry 94 L 98 10/08/18 23:25 10/09/18 00:00 10/09/18 04:00 Temperature 101.9 F H Pulse Rate 122 H 117 H 88 Respiratory Rate 17 Blood Pressure 124/60 Pulse Oximetry 98 10/09/18 04:15 10/09/18 08:00 Temperature 98.1 F 98.4 F Pulse Rate 89 96 H Respiratory Rate 17 18 Blood Pressure 108/63 127/66 Pulse Oximetry 98 99 Intake & Output 10/08/18 10/09/18 10/09/18 18:59 06:59 18:59 Intake Total 2197.5 / 2197.5 2765.0 / 2765.0 1000 / 1000 Balance 2197.5 / 2197.5 2765.0 / 2765.0 1000 / 1000 Weight 55.8 kg Intake: IV 1357.5 / 1357.5 2525.0 / 2525.0 1000 / 1000 NS Inj 1,000 ML @ 100 mls/hr IV 1000 / 1000 1000 / 1000 1000 / 1000 .CONT .Q10H [facility] Rx#:[id number] NS Inj 1,000 ML @ 1000 mls/hr 1000 / 1000 IV.SIG BOLUS [facility] Rx#:[id number] Vancomycin Inj 1,250 MG In NS 257.5 / 257.5 525.0 / 525.0 Inj 250 ML @ 250 mls/hr IV.SIG Q8H [facility] Rx#:[id number] Vancomycin Inj 500 MG In NS Inj 100 / 100 100 ML @ 200 mls/hr IV.SIG ONCE ONE Rx#:[id number] Oral 840 / 840 240 / 240 Other: # Voids 2 4 # Bowel Movements 0 0 <Corine De La O - 10/09/18 12:09> Narrative: GENERAL: 22F thin and cooperative who was in no acute distress SKIN: Warm and dry. HEAD: Normocephalic. EYES: No scleral icterus. No injection or drainage. NECK: Supple, trachea midline. No JVD or lymphadenopathy. CARDIOVASCULAR: Regular rate and rhythm without murmurs, gallops, or rubs. RESPIRATORY: Breath sounds equal bilaterally. No wheezing of crackles. No accessory muscle use. GASTROINTESTINAL: Abdomen soft, non-tender, nondistended. No guarding or rigidity EXTREMITIES: left arm with decreased ROM however much improved from yesterday, has overlying bandage. left upper extremity edematous compared to right upper extremity. able to move all other extremities with no difficulty. good capillary refill in both hands. no calf tenderness NEUROLOGICAL: Awake, alert, and oriented x 3. Non-focal. <JaironCorine - 10/09/18 13:37> Assessment and Plan - Assessment (1) Sepsis due to skin infection Code(s): L03.90 - Cellulitis, unspecified; A41.9 - Sepsis, unspecified organism Status: Acute (2) Abscess of left upper extremity Code(s): L02.414 - Cutaneous abscess of left upper limb Status: Acute (3) Cellulitis of left upper extremity Code(s): L03.114 - Cellulitis of left upper limb Status: Acute (4) Intravenous drug abuse Code(s): F19.10 - Other psychoactive substance abuse, uncomplicated Status: Chronic (5) Hepatitis C antibody positive in blood Code(s): R76.8 - Other specified abnormal immunological findings in serum Status: Acute (6) Nutrition, metabolism, and development symptoms Code(s): R63.8 - Other symptoms and signs concerning food and fluid intake Status: Acute <Izabel Bradley 10/09/18 20:56> (1) Sepsis due to skin infection Code(s): L03.90 - Cellulitis, unspecified; A41.9 - Sepsis, unspecified organism Status: Acute Plan: Status post incision and drainage of left upper extremity postop day 2. Ortho is following Pain control: Toradol and Morphine 3mg q3hr prn Left arm fluid culture was positive for MRSA, increased vancomycin 750 mg to 1250 mg yesterday, currently trough 8-9, goal is 15-20 per ID . Currently awaiting sensitivities for antibiotic outpatient management Wound culture show positive for MRSA, fungal and AFB negative Repeat blood cultures pending Urine culture showed mixed gram-positive manuel, most likely due to contamination WBC within normal limits ID is following (2) Cellulitis of left upper extremity Code(s): L03.114 - Cellulitis of left upper limb Status: Acute Plan: see above management for sepsis (3) Intravenous drug abuse Code(s): F19.10 - Other psychoactive substance abuse, uncomplicated Status: Chronic (4) Nutrition, metabolism, and development symptoms Code(s): R63.8 - Other symptoms and signs concerning food and fluid intake Status: Acute Plan: NS IVF 100mls/hr On regular diet as tolerated Replete electrolytes as needed (5) Hepatitis C antibody positive in blood Code(s): R76.8 - Other specified abnormal immunological findings in serum Status: Acute Plan: HepC studies pending <Corine De La O - 10/09/18 13:39> - Assessment and Plan Fluids: NS @ 100ml/hr but tolerating regular diet Electrolytes: monitor and replete as needed. Nutrition: regular adult diet DVT Prophylaxis: Early ambulation. SCDs if not ambulatory. GI Prophylaxis: None indicated PRN anti-HTN: None indicated on admission. Consider clonidine 0.1mg PO PRN for SBP > 180/ and/or DBP > 100 <Corine De La O 10/09/18 13:38> - Attending Attestation Patient seen, examined, and discussed with medical student and resident team. I agree with assessment and management as documented and discussed with me. I personally performed interview/exam and verify documentation as accurate. Overall, pt reports that pain is improving. Febrile overnight - blood cultures pending. Reviewed echo results with patient and mother. <Izabel Bradley 10/09/18 20:56>
[2018-10-09] MEDS: Sod Chloride 0.9% Inj 1,000 ML IV.CONT SCH ×2 (13:31→19:34)
[2018-10-09] MEDS: Senna/Docusate Sodium 8.6/50 MG Tablet PO SCH ×2 (13:32→21:57)
[2018-10-09] MEDS ORDERED: Pharmacy Ordered Lab Info OTHER ONE (13:45)
[2018-10-09] MEDS: traZODone 50 MG Tablet PO SCH (20:15)
[2018-10-10] MEDS: Sod Chloride 0.9% Inj 1,000 ML IV.CONT SCH ×3 (02:43→18:53)
[2018-10-10] MEDS: Ketorolac Inj 30 MG/ML (IVP) Vial IV.PUSH PRN ×4 (02:44→22:31)
[2018-10-10] MEDS: LORazepam 0.5 MG Tablet PO PRN ×3 (02:47→20:26)
[2018-10-10 05:41] LABS: Baso % (Auto) 0.3 % (0.0-2.0); Eos # (Auto) 0.3 th/mm3 (0.0-0.4); Eos % (Auto) 4.5 % (0.0-4.0); Hemoglobin 11.1 gm/dL (11.6-15.3); Lymph # (Auto) 1.4 th/mm3 (1.0-4.8); Mean Corpuscular HGB Conc 34.7 % (32.0-36.0); Mean Corpuscular Hemoglobin 29.2 pg (27.0-34.0); Mean Corpuscular Volume 84.1 fL (80.0-100.0); Mono # (Auto) 0.7 th/mm3 (0.0-0.9); Mono % (Auto) 8.8 % (0.0-8.0); Neut # (Auto) 5.1 th/mm3 (1.8-7.7); Neut % (Auto) 67.4 % (16.0-70.0); Platelet Count 425 th/mm3 (150-450); Red Blood Count 3.81 mil/mm3 (4.00-5.30); Red Cell Distribution Width 15.9 % (11.6-17.2); White Blood Count 7.6 th/mm3 (4.0-11.0)
[2018-10-10] MEDS: Vancomycin Inj 1,250 MG in Sodium Chlor 0.9% Inj 250 ML IV.SIG SCH ×3 (06:30→22:34)
[2018-10-10] MEDS: Senna/Docusate Sodium 8.6/50 MG Tablet PO SCH ×2 (09:19→20:23)
--- NOTE | 2018-10-10 09:32 | P.PNFP ---
Subjective Interval history: Patient seen and examined at bedside. Reports she was not able to sleep well overnight due to frequent awakening from staff for vs monitoring. Reports chills overnight. No other complaints. Left arm pain is well controlled, she has improved ROM. Last BM was yesterday. <Rashadroxy Josep Garay D - 10/10/18 09:31> Results - Labs Result diagrams: 10/10/18 05:31 10/10/18 17:10 <Izabel Bradley - 10/10/18 21:04> Abnormal lab results 10/10/18 10/10/18 10/10/18 Range/Units 05:31 13:55 17:10 RBC 3.81 L (4.00-5.30) mil/mm3 Hgb 11.1 L (11.6-15.3) gm/dL Hct 32.0 L (35.0-46.0) % [place] % (Auto) 8.8 H (0.0-8.0) % Eos % (Auto) 4.5 H (0.0-4.0) % Creatinine 0.49 L (0.50-1.00) mg/dL Calcium 8.2 L (8.5-10.1) mg/dL Vancomycin Trough 15.2 H (5.0-10.0) mcg/mL Short CBC 10/10/18 Range/Units 05:31 WBC 7.6 (4.0-11.0) th/mm3 Hgb 11.1 L (11.6-15.3) gm/dL Hct 32.0 L (35.0-46.0) % Plt Count 425 (150-450) th/mm3 [facility] 10/10/18 17:10 Sodium 140 Potassium 3.8 Chloride 107 Carbon Dioxide 26.0 BUN 7 Creatinine 0.49 L Calcium 8.2 L <Izabel Bradley - 10/10/18 21:04> Abnormal lab results 10/09/18 10/09/18 10/09/18 Range/Units 09:09 09:09 13:04 RBC 3.67 L (4.00-5.30) mil/mm3 Hgb 10.6 L (11.6-15.3) gm/dL Hct 31.4 L (35.0-46.0) % [place] % (Auto) 10.4 H (0.0-8.0) % Eos % (Auto) 5.3 H (0.0-4.0) % Chloride 108 H (98-107) meq/L BUN 5 L (7-18) mg/dL Creatinine 0.43 L (0.50-1.00) mg/dL Calcium 7.9 L (8.5-10.1) mg/dL Total Protein 5.7 L D (6.4-8.2) g/dL Albumin 1.7 L (3.4-5.0) g/dL Vancomycin Trough 14.7 H (5.0-10.0) mcg/mL 10/10/18 Range/Units 05:31 RBC 3.81 L (4.00-5.30) mil/mm3 Hgb 11.1 L (11.6-15.3) gm/dL Hct 32.0 L (35.0-46.0) % [place] % (Auto) 8.8 H (0.0-8.0) % Eos % (Auto) 4.5 H (0.0-4.0) % Chloride (98-107) meq/L BUN (7-18) mg/dL Creatinine (0.50-1.00) mg/dL Calcium (8.5-10.1) mg/dL Total Protein (6.4-8.2) g/dL Albumin (3.4-5.0) g/dL Vancomycin Trough (5.0-10.0) mcg/mL Short CBC 10/09/18 10/10/18 Range/Units 09:09 05:31 WBC 6.6 7.6 (4.0-11.0) th/mm3 Hgb 10.6 L 11.1 L (11.6-15.3) gm/dL Hct 31.4 L 32.0 L (35.0-46.0) % Plt Count 376 425 (150-450) th/mm3 BMP 10/09/18 09:09 Sodium 140 Potassium 3.6 Chloride 108 H Carbon Dioxide 25.2 BUN 5 L Creatinine 0.43 L Calcium 7.9 L Liver Function 10/09/18 Range/Units 09:09 Total Bilirubin 0.3 (0.2-1.0) mg/dL AST 28 (16-38) U/L ALT 36 (9-42) U/L Alkaline Phosphatase 82 (45-117) U/L Albumin 1.7 L (3.4-5.0) g/dL <Josep Myrick D - 10/10/18 09:31> Physical Exam Vital signs: Vital Signs 10/09/18 21:59 10/09/18 23:45 10/10/18 00:00 Temperature Pulse Rate 107 H 93 H Respiratory Rate 18 18 Blood Pressure 123/60 Pulse Oximetry 99 10/10/18 04:00 10/10/18 04:20 10/10/18 08:00 Temperature 98.1 F Pulse Rate 101 H 104 H 96 H Respiratory Rate 18 Blood Pressure 122/59 L Pulse Oximetry 99 10/10/18 08:10 10/10/18 12:00 10/10/18 12:45 Temperature 98.8 F 98.7 F Pulse Rate 97 H 92 H 97 H Respiratory Rate 18 18 Blood Pressure 116/66 118/69 Pulse Oximetry 99 99 10/10/18 16:00 10/10/18 18:34 Temperature 99.1 F Pulse Rate 89 95 H Respiratory Rate 18 Blood Pressure 129/73 Pulse Oximetry 99 Intake & Output 10/10/18 10/10/18 10/11/18 06:59 18:59 06:59 Intake Total 3042.5 / 3042.5 2245.0 / 2245.0 Balance 3042.5 / 3042.5 2245.0 / 2245.0 Weight 55.2 kg Intake: IV 2562.5 / 2562.5 1525.0 / 1525.0 NS Inj 1,000 ML @ 100 mls/hr IV 2300 / 2300 1000 / 1000 .CONT .Q10H [facility] Rx#:[id number] Vancomycin Inj 1,250 MG In NS 262.5 / 262.5 525.0 / 525.0 Inj 250 ML @ 250 mls/hr IV.SIG Q8H [facility] Rx#:[id number] Oral 480 / 480 720 / 720 Other: # Voids 8 5 # Bowel Movements 0 0 <Izabel Bradley - 10/10/18 21:04> Vital Signs 10/09/18 12:00 10/09/18 12:10 10/09/18 16:00 Temperature 98.9 F Pulse Rate 98 H 104 H 101 H Respiratory Rate 18 Blood Pressure 118/59 L Pulse Oximetry 100 10/09/18 16:35 10/09/18 20:00 10/09/18 21:59 Temperature 98.9 F 99.4 F Pulse Rate 101 H 112 H Respiratory Rate 18 18 18 Blood Pressure 123/55 L 116/58 L Pulse Oximetry 100 97 10/09/18 23:45 10/10/18 00:00 10/10/18 04:00 Temperature Pulse Rate 107 H 93 H 101 H Respiratory Rate 18 Blood Pressure 123/60 Pulse Oximetry 99 10/10/18 04:20 10/10/18 08:10 Temperature 98.1 F 98.8 F Pulse Rate 104 H 97 H Respiratory Rate 18 18 Blood Pressure 122/59 L 116/66 Pulse Oximetry 99 99 Intake & Output 10/09/18 10/10/18 10/10/18 18:59 06:59 18:59 Intake Total 1962.5 / 1962.5 3042.5 / 3042.5 Output Total 952 / 952 Balance 1010.5 / 1010.5 3042.5 / 3042.5 Weight 55.2 kg Intake: IV 1262.5 / 1262.5 2562.5 / 2562.5 NS Inj 1,000 ML @ 100 mls/hr IV 1000 / 1000 2300 / 2300 .CONT .Q10H [facility] Rx#:[id number] Vancomycin Inj 1,250 MG In NS 262.5 / 262.5 262.5 / 262.5 Inj 250 ML @ 250 mls/hr IV.SIG Q8H [facility] Rx#:[id number] Oral 700 / 700 480 / 480 Output: Urine 950 / 950 Urine/Stool Mix 2 / 2 Other: # Voids 1 8 # Bowel Movements 0 <Josep Myrick D - 10/10/18 09:31> Narrative: GENERAL: laying in bed in no acute distress SKIN: Warm and dry. HEAD: Normocephalic. EYES: No scleral icterus. No injection or drainage. NECK: Supple, trachea midline. CARDIOVASCULAR: Regular rate and rhythm without murmurs, gallops, or rubs. RESPIRATORY: Breath sounds equal bilaterally. No wheezing of crackles. No accessory muscle use. GASTROINTESTINAL: Abdomen soft, non-tender, nondistended. No guarding or rigidity EXTREMITIES: left arm with improved ROM and edema, has overlying bandage. Able to move all fingers of left hand, normal sensation, good capillary refill in both hands. +2 Left Radial pulse, NEUROLOGICAL: Awake, alert, and oriented x 3. Non-focal. <Toan GarayJosep Berenice - 10/10/18 09:31> Assessment and Plan - Assessment (1) Sepsis due to skin infection Code(s): L03.90 - Cellulitis, unspecified; A41.9 - Sepsis, unspecified organism Status: Acute (2) Abscess of left upper extremity Code(s): L02.414 - Cutaneous abscess of left upper limb Status: Acute (3) Cellulitis of left upper extremity Code(s): L03.114 - Cellulitis of left upper limb Status: Acute (4) Intravenous drug abuse Code(s): F19.10 - Other psychoactive substance abuse, uncomplicated Status: Chronic (5) Hepatitis C antibody positive in blood Code(s): R76.8 - Other specified abnormal immunological findings in serum Status: Acute (6) Nutrition, metabolism, and development symptoms Code(s): R63.8 - Other symptoms and signs concerning food and fluid intake Status: Acute <Izabel Bradley - 10/10/18 21:04> (1) Sepsis due to skin infection Code(s): L03.90 - Cellulitis, unspecified; A41.9 - Sepsis, unspecified organism Status: Acute Plan: 22-year-old female presented with left arm cellulitis and elbow MRI showing abscess 2 cm x 0.9cm in size with trace joint effusion. Location is anterior lateral aspect of upper extremity proximal to elbow joint. Left humerus and elbow x-rays unremarkable. -S/p day 3 of aspiration of 7ml of purulent fluid positive for MRSA Plan: -Wound cultures positive for MRSA -Initial blood cultures: No growth x 4 days -Infectious disease consulted, appreciate recommendations Continue Vancomycin, goal to keep levels between 15-20 Vancomycin trough on 10/09 increased to 14.7 -Echo: Normal left ventricular size, EF 60-65%, no vegetations noted -Occupational Therapy consult No occupational therapy recommendations upon discharge -Case management consult Urinalysis: Negative UDS: Positive for opiates, amphetamines, and cannabinoids Positive Hep C, patient informed of dx today, all questions answered -Pain control:Toradol scheduled, morphine for breakthrough -ativan 0.5mg PRN for anxiety Follow up: Repeat blood cultures taken on 08/08: Pending (2) Abscess of left upper extremity Code(s): L02.414 - Cutaneous abscess of left upper limb Status: Acute Plan: See plan for Sepsis due to Skin Infection (3) Cellulitis of left upper extremity Code(s): L03.114 - Cellulitis of left upper limb Status: Acute Plan: See plan for Sepsis due to Skin Infection (4) Intravenous drug abuse Code(s): F19.10 - Other psychoactive substance abuse, uncomplicated Status: Chronic Plan: Patient is chronic IV drug user and notes use of multiple skin sites for heroin , last use 10/04. She does not express any interest in quitting. -Medical management for infection -Case management for offering patient community resources if interested (5) Hepatitis C antibody positive in blood Code(s): R76.8 - Other specified abnormal immunological findings in serum Status: Acute Plan: IVDU positive for Hep C on admission. -Viral load ordered -Genotype ordered -GI consult no appropriate at this time as patient is a current IVDU (6) Nutrition, metabolism, and development symptoms Code(s): R63.8 - Other symptoms and signs concerning food and fluid intake Status: Acute Plan: Fluids: IVF at 100mls/hr Electrolytes: Replete as needed Diet: regular DVT ppx: SCDs <Josep Myrick - 10/10/18 09:16> - Assessment and Plan Fluids: NS @ 100ml/hr but tolerating regular diet Electrolytes: monitor and replete as needed. Nutrition: regular adult diet DVT Prophylaxis: Early ambulation. SCDs if not ambulatory. GI Prophylaxis: None indicated PRN anti-HTN: None indicated on admission. Consider clonidine 0.1mg PO PRN for SBP > 180/ and/or DBP > 100 <Josep Myrick - 10/10/18 09:31> - Attending Attestation Patient seen and examined, discussed with resident team. I agree with assessment and management as documented and discussed with me. Pt reports pain is controlled. She is able to move her arm a bit more. Continue vancomycin. <Izabel Bradley - 10/10/18 21:04>
[2018-10-10] MEDS: Morphine Inj 4 MG/ML Vial IV.PUSH PRN ×3 (10:45→22:45)
[2018-10-10] MEDS ORDERED: Pharmacy Ordered Lab Info OTHER ONE (13:45)
--- NOTE | 2018-10-10 13:53 | P.PNOP ---
Subjective Interval history: pain in arm improving. Physical Exam Vital signs: Vital Signs 10/09/18 16:00 10/09/18 16:35 10/09/18 20:00 Temperature 98.9 F 99.4 F Pulse Rate 101 H 101 H 112 H Respiratory Rate 18 18 Blood Pressure 123/55 L 116/58 L Pulse Oximetry 100 97 10/09/18 21:59 10/09/18 23:45 10/10/18 00:00 Temperature Pulse Rate 107 H 93 H Respiratory Rate 18 18 Blood Pressure 123/60 Pulse Oximetry 99 10/10/18 04:00 10/10/18 04:20 10/10/18 08:00 Temperature 98.1 F Pulse Rate 101 H 104 H 96 H Respiratory Rate 18 Blood Pressure 122/59 L Pulse Oximetry 99 10/10/18 08:10 10/10/18 12:45 Temperature 98.8 F 98.7 F Pulse Rate 97 H 97 H Respiratory Rate 18 18 Blood Pressure 116/66 118/69 Pulse Oximetry 99 99 Intake & Output 10/09/18 10/10/18 10/10/18 18:59 06:59 18:59 Intake Total 1962.5 / 1962.5 3042.5 / 3042.5 262.5 / 262.5 Output Total 952 / 952 Balance 1010.5 / 1010.5 3042.5 / 3042.5 262.5 / 262.5 Weight 55.2 kg Intake: IV 1262.5 / 1262.5 2562.5 / 2562.5 262.5 / 262.5 NS Inj 1,000 ML @ 100 mls/hr IV 1000 / 1000 2300 / 2300 .CONT .Q10H [facility] Rx#:[id number] Vancomycin Inj 1,250 MG In NS 262.5 / 262.5 262.5 / 262.5 262.5 / 262.5 Inj 250 ML @ 250 mls/hr IV.SIG Q8H [facility] Rx#:[id number] Oral 700 / 700 480 / 480 Output: Urine 950 / 950 Urine/Stool Mix 2 / 2 Other: # Voids 1 8 1 # Bowel Movements 0 Narrative: in bed, nad dressing removed incision - no erythema, no drainage 2+ radial pulse swelling in hand much improved full ROM of fingers Results - Labs CBC & Chem 7: 10/10/18 05:31 10/09/18 09:09 Laboratory Results - last 24 hr 10/09/18 10/10/18 13:04 05:31 WBC 7.6 RBC 3.81 L Hgb 11.1 L Hct 32.0 L MCV 84.1 MCH 29.2 MCHC 34.7 RDW 15.9 Plt Count 425 MPV 7.0 Neut % (Auto) 67.4 Lymph % (Auto) 19.0 [place] % (Auto) 8.8 H Eos % (Auto) 4.5 H Baso % (Auto) 0.3 Neut # (Auto) 5.1 Lymph # (Auto) 1.4 [place] # (Auto) 0.7 Eos # (Auto) 0.3 Baso # (Auto) 0.0 WBC Differential . Differential Comment Auto diff final Vancomycin Trough 14.7 H Microbiology 10/09/18 03:47 Blood - Peripheral Aerobic Blood Culture - Preliminary gram positive cocci 10/09/18 03:47 Blood - Peripheral Anaerobic Blood Culture - Preliminary No growth in 1 day 10/09/18 03:43 Blood - Peripheral Aerobic Blood Culture - Preliminary No growth in 1 day 10/09/18 03:43 Blood - Peripheral Anaerobic Blood Culture - Preliminary No growth in 1 day 10/05/18 18:45 Blood - Peripheral Aerobic Blood Culture - Final No growth in 5 days 10/05/18 18:45 Blood - Peripheral Anaerobic Blood Culture - Final No growth in 5 days 10/05/18 18:50 Blood - Peripheral Aerobic Blood Culture - Final No growth in 5 days 10/05/18 18:50 Blood - Peripheral Anaerobic Blood Culture - Final No growth in 5 days 10/05/18 01:21 Blood - Peripheral Aerobic Blood Culture - Final No growth in 5 days 10/05/18 01:21 Blood - Peripheral Anaerobic Blood Culture - Final No growth in 5 days 10/05/18 01:26 Blood - Peripheral Aerobic Blood Culture - Final No growth in 5 days 10/05/18 01:26 Blood - Peripheral Anaerobic Blood Culture - Final No growth in 5 days 10/07/18 11:05 Wound - Arm Gram Stain - Final 10/07/18 11:05 Wound - Arm Wound Culture - Final S. aureus MRSA Assessment and Plan - Ortho Post Op Day # 3 - Assessment and Plan 22 year old female with left arm cellulitis and small abscess from IV drug abuse Plan: s/p I&D LUE POD#3 ROM as tolerated daily dressing changes cultures - MRSA cont iv abx per ID no spreading erythema ortho stable f/up dr. velazco 2 weeks
--- NOTE | 2018-10-10 13:58 | P.PNID ---
Subjective Remarks: blood culture + for GPC 1/4 bottles 2 D echo no veg's no fever improved LUE pain Antibiotics: vanco Allergies/Adverse Reactions: Allergies No Known Allergies Allergy (Unverified 02/07/18 01:05) Objective Vital Signs 10/09/18 16:00 10/09/18 16:35 10/09/18 20:00 Temperature 98.9 F 99.4 F Pulse Rate 101 H 101 H 112 H Respiratory Rate 18 18 Blood Pressure 123/55 L 116/58 L Pulse Oximetry 100 97 10/09/18 21:59 10/09/18 23:45 10/10/18 00:00 Temperature Pulse Rate 107 H 93 H Respiratory Rate 18 18 Blood Pressure 123/60 Pulse Oximetry 99 10/10/18 04:00 10/10/18 04:20 10/10/18 08:00 Temperature 98.1 F Pulse Rate 101 H 104 H 96 H Respiratory Rate 18 Blood Pressure 122/59 L Pulse Oximetry 99 10/10/18 08:10 10/10/18 12:45 Temperature 98.8 F 98.7 F Pulse Rate 97 H 97 H Respiratory Rate 18 18 Blood Pressure 116/66 118/69 Pulse Oximetry 99 99 Intake & Output 10/09/18 10/10/18 10/10/18 18:59 06:59 18:59 Intake Total 1962.5 / 1962.5 3042.5 / 3042.5 262.5 / 262.5 Output Total 952 / 952 Balance 1010.5 / 1010.5 3042.5 / 3042.5 262.5 / 262.5 Weight 55.2 kg Intake: IV 1262.5 / 1262.5 2562.5 / 2562.5 262.5 / 262.5 NS Inj 1,000 ML @ 100 mls/hr IV 1000 / 1000 2300 / 2300 .CONT .Q10H [facility] Rx#:[id number] Vancomycin Inj 1,250 MG In NS 262.5 / 262.5 262.5 / 262.5 262.5 / 262.5 Inj 250 ML @ 250 mls/hr IV.SIG Q8H [facility]NY Rx#:[id number] Oral 700 / 700 480 / 480 Output: Urine 950 / 950 Urine/Stool Mix 2 / 2 Other: # Voids 1 8 1 # Bowel Movements 0 10/09/18 03:47 Blood - Peripheral Aerobic Blood Culture - Preliminary gram positive cocci 10/09/18 03:47 Blood - Peripheral Anaerobic Blood Culture - Preliminary No growth in 1 day 10/09/18 03:43 Blood - Peripheral Aerobic Blood Culture - Preliminary No growth in 1 day 10/09/18 03:43 Blood - Peripheral Anaerobic Blood Culture - Preliminary No growth in 1 day 10/05/18 18:45 Blood - Peripheral Aerobic Blood Culture - Final No growth in 5 days 10/05/18 18:45 Blood - Peripheral Anaerobic Blood Culture - Final No growth in 5 days 10/05/18 18:50 Blood - Peripheral Aerobic Blood Culture - Final No growth in 5 days 10/05/18 18:50 Blood - Peripheral Anaerobic Blood Culture - Final No growth in 5 days 10/05/18 01:21 Blood - Peripheral Aerobic Blood Culture - Final No growth in 5 days 10/05/18 01:21 Blood - Peripheral Anaerobic Blood Culture - Final No growth in 5 days 10/05/18 01:26 Blood - Peripheral Aerobic Blood Culture - Final No growth in 5 days 10/05/18 01:26 Blood - Peripheral Anaerobic Blood Culture - Final No growth in 5 days 10/07/18 11:05 Wound - Arm Gram Stain - Final 10/07/18 11:05 Wound - Arm Wound Culture - Final S. aureus MRSA 10/07/18 11:05 Wound - Arm Acid Fast Bacilli Smear - Final No acid fast bacilli seen 10/07/18 11:05 Wound - Arm Mycobacterial Culture - Pending 10/07/18 11:05 Wound - Arm Fungal Smear - Final No fungal elements seen 10/07/18 11:05 Wound - Arm Fungal Culture - Pending 10/06/18 19:00 Fluid - Other Gram Stain - Final 10/06/18 19:00 Fluid - Other Body Fluid Culture - Final S. aureus MRSA 10/05/18 10:10 Clean Catch Urine Urine Culture - Final 10-50,000 cfu/mL mixed gram positive manuel (probable contaminants) Lab - Hematology Results 10/09/18 10/10/18 09:09 05:31 WBC 6.6 7.6 RBC 3.67 L 3.81 L Hgb 10.6 L 11.1 L Hct 31.4 L 32.0 L MCV 85.6 84.1 MCH 29.0 29.2 MCHC 33.9 34.7 RDW 16.1 15.9 Plt Count 376 425 MPV 7.1 7.0 Neut % (Auto) 64.1 67.4 Lymph % (Auto) 19.9 19.0 Carter % (Auto) 10.4 H 8.8 H Eos % (Auto) 5.3 H 4.5 H Baso % (Auto) 0.3 0.3 Neut # (Auto) 4.2 5.1 Lymph # (Auto) 1.3 1.4 Carter # (Auto) 0.7 0.7 Eos # (Auto) 0.3 0.3 Baso # (Auto) 0.0 0.0 WBC Differential . . Differential Comment Auto diff final Auto diff final Lab - Chemistry Results 10/09/18 10/09/18 10/09/18 03:45 05:15 09:09 Sodium 140 Potassium 3.6 Chloride 108 H Carbon Dioxide 25.2 Anion Gap 7 BUN 5 L Creatinine 0.44 L 0.43 L Estimated GFR Greater than 89 Greater than 89 Random Glucose 84 Lactic Acid 1.5 Calcium 7.9 L Total Bilirubin 0.3 AST 28 ALT 36 Alkaline Phosphatase 82 Total Protein 5.7 L D Albumin 1.7 L Imaging: ITS Impressions Elbow X-Ray 10/05/18 00:01 CONCLUSION: 1. No acute fracture. Humerus X-Ray 10/05/18 00:01 CONCLUSION: 1. No acute fracture. Humerus MRI 10/05/18 01:23 CONCLUSION: 1. 2.0 x 0.9 cm abscess in the anterolateral distal biceps region with regional cellulitis. 2. Subtle elbow joint effusion without definitive abnormal enhancement. 3. No evidence for osteomyelitis. Abscess Drainage 10/06/18 00:00 CONCLUSION: 1. Uncomplicated aspiration of a left antecubital fossa abscess yielding 7 mL of purulent material. Samples were sent for microbiological evaluation. Incidental note is also made of thrombophlebitis of the distal cephalic vein.. Soft Tissue Ultrasound 10/06/18 15:43 CONCLUSION: 1. Thrombophlebitis of the cephalic vein. 2. 4.2 x 2.4 x 1.6 cm fluid collection surrounding the cephalic vein possibly relating to an abscess. Physical Exam: GENERAL: NAD SKIN: Warm and dry. No rash HEAD: Atraumatic. Normocephalic. EYES: Pupils equal and round. No scleral icterus. No injection or drainage. ENT: No nasal bleeding or discharge. Mucous membranes pink and moist. NECK: Trachea midline. No JVD. CARDIOVASCULAR: Regular rate and rhythm. No murmurs RESPIRATORY: No accessory muscle use. Clear to auscultation. Breath sounds equal bilaterally. GASTROINTESTINAL: Abdomen soft, non-tender, nondistended. Hepatic and splenic margins not palpable. MUSCULOSKELETAL: Extremities without clubbing, cyanosis, or edema. LUE with no edema or erythema clean well approximated incision NEUROLOGICAL: Awake and alert. Non focal Normal speech. PSYCHIATRIC: Appropriate mood and affect; Assessment and Plan - Plan IVDU 2.0 x 0.9 cm abscess in the anterolateral Left distal biceps region with regional cellulitis. Abscess 2/2 MRSA sp I+D Persistent pain and worsening fever, bloodc lx is positive Low grade gram positive bacetermia - ID P Cont high dose vanco keep levels 15-20 Further rec's will depens on ID of the GPC in blood clx dw micro - ID will be availabele later today dw pt
[2018-10-10 18:19] LABS: Anion Gap 7 meq/L (5-15); Blood Urea Nitrogen 7 mg/dL (7-18); Calcium 8.2 mg/dL (8.5-10.1); Chloride 107 meq/L (98-107); Glomerular Filtration Rate Greater Than 89 mL/min (>89); Glucose,Random 86 mg/dL (74-106); Potassium 3.8 meq/L (3.5-5.1); Sodium 140 meq/L (136-145)
[2018-10-10] MEDS: traZODone 50 MG Tablet PO SCH (20:22)
[2018-10-10 23:52] LABS: Hepatitis C RNA (PCR) log IUs 3.76
[2018-10-11] MEDS: Sod Chloride 0.9% Inj 1,000 ML IV.CONT SCH ×3 (03:26→14:37)
[2018-10-11] MEDS: Vancomycin Inj 1,250 MG in Sodium Chlor 0.9% Inj 250 ML IV.SIG SCH ×3 (05:48→21:07)
[2018-10-11] MEDS: Morphine Inj 4 MG/ML Vial IV.PUSH PRN ×6 (05:49→21:05)
[2018-10-11 06:52] LABS: Baso % (Auto) 0.4 % (0.0-2.0); Eos # (Auto) 0.4 th/mm3 (0.0-0.4); Eos % (Auto) 5.4 % (0.0-4.0); Hematocrit 34.3 % (35.0-46.0); Hemoglobin 11.7 gm/dL (11.6-15.3); Lymph # (Auto) 1.6 th/mm3 (1.0-4.8); Lymph % (Auto) 20.1 % (9.0-44.0); Mean Corpuscular HGB Conc 34.2 % (32.0-36.0); Mean Corpuscular Hemoglobin 29.1 pg (27.0-34.0); Mean Corpuscular Volume 84.9 fL (80.0-100.0); Mean Platelet Volume 7.1 fL (7.0-11.0); Mono # (Auto) 0.6 th/mm3 (0.0-0.9); Mono % (Auto) 7.3 % (0.0-8.0); Neut # (Auto) 5.2 th/mm3 (1.8-7.7); Neut % (Auto) 66.8 % (16.0-70.0); Platelet Count 479 th/mm3 (150-450); Red Blood Count 4.04 mil/mm3 (4.00-5.30); Red Cell Distribution Width 15.7 % (11.6-17.2); White Blood Count 7.8 th/mm3 (4.0-11.0)
[2018-10-11 06:58] LABS: Anion Gap 8 meq/L (5-15); Blood Urea Nitrogen 8 mg/dL (7-18); Calcium 8.3 mg/dL (8.5-10.1); Carbon Dioxide 24.9 meq/L (21.0-32.0); Chloride 108 meq/L (98-107); Glomerular Filtration Rate Greater Than 89 mL/min (>89); Glucose,Random 88 mg/dL (74-106); Potassium 4.3 meq/L (3.5-5.1); Sodium 141 meq/L (136-145)
[2018-10-11] MEDS: Senna/Docusate Sodium 8.6/50 MG Tablet PO SCH ×2 (08:59→22:20)
--- NOTE | 2018-10-11 09:42 | P.PNFP ---
Subjective Interval history: No acute events overnight Patient examined while lying in bed comfortably. Patient reports difficulty sleeping due to going to the bathroom multiple times during the night, also requesting for Toradol to be put back. Patient reports that the Toradol helped with swelling and inflammation of her arm. Reports flatus, denies bowel movement since 2 days ago. Denies headache,nausea vomiting, fever and chills, shortness of breath, cough, abdominal pain, calf tenderness. <Corine De La O - 10/11/18 09:44> Results - Labs Result diagrams: 10/11/18 06:14 10/11/18 06:14 <Izabel Bradley - 10/11/18 21:07> Abnormal lab results 10/07/18 10/11/18 10/11/18 Range/Units 16:10 06:14 06:14 Hct 34.3 L (35.0-46.0) % Plt Count 479 H (150-450) th/mm3 Eos % (Auto) 5.4 H (0.0-4.0) % Chloride 108 H (98-107) meq/L Calcium 8.3 L (8.5-10.1) mg/dL HCV RNA (PCR) IUs/ml 5750 H IU/mL HCV RNA PCR log IUs/ml 3.76 H LogIU/mL Short CBC 10/11/18 Range/Units 06:14 WBC 7.8 (4.0-11.0) th/mm3 Hgb 11.7 (11.6-15.3) gm/dL Hct 34.3 L (35.0-46.0) % Plt Count 479 H (150-450) th/mm3 BMP 10/11/18 06:14 Sodium 141 Potassium 4.3 Chloride 108 H Carbon Dioxide 24.9 BUN 8 Creatinine 0.54 Calcium 8.3 L <Izabel Bradley - 10/11/18 21:07> Abnormal lab results 10/07/18 10/10/18 10/10/18 Range/Units 16:10 13:55 17:10 Hct (35.0-46.0) % Plt Count (150-450) th/mm3 Eos % (Auto) (0.0-4.0) % Chloride (98-107) meq/L Creatinine 0.49 L (0.50-1.00) mg/dL Calcium 8.2 L (8.5-10.1) mg/dL Vancomycin Trough 15.2 H (5.0-10.0) mcg/mL HCV RNA (PCR) IUs/ml 5750 H IU/mL HCV RNA PCR log IUs/ml 3.76 H LogIU/mL 10/11/18 10/11/18 Range/Units 06:14 06:14 Hct 34.3 L (35.0-46.0) % Plt Count 479 H (150-450) th/mm3 Eos % (Auto) 5.4 H (0.0-4.0) % Chloride 108 H (98-107) meq/L Creatinine (0.50-1.00) mg/dL Calcium 8.3 L (8.5-10.1) mg/dL Vancomycin Trough (5.0-10.0) mcg/mL HCV RNA (PCR) IUs/ml IU/mL HCV RNA PCR log IUs/ml LogIU/mL Short CBC 10/11/18 Range/Units 06:14 WBC 7.8 (4.0-11.0) th/mm3 Hgb 11.7 (11.6-15.3) gm/dL Hct 34.3 L (35.0-46.0) % Plt Count 479 H (150-450) th/mm3 BMP 10/10/18 10/11/18 17:10 06:14 Sodium 140 141 Potassium 3.8 4.3 Chloride 107 108 H Carbon Dioxide 26.0 24.9 BUN 7 8 Creatinine 0.49 L 0.54 Calcium 8.2 L 8.3 L <Corine De La O - 10/11/18 09:41> Physical Exam Vital signs: Vital Signs 10/10/18 23:35 10/11/18 02:00 10/11/18 04:55 Temperature 98.3 F 98 F Pulse Rate 104 H 98 H 88 Respiratory Rate 17 17 Blood Pressure 108/53 L 127/57 L Pulse Oximetry 98 98 10/11/18 06:00 10/11/18 08:00 10/11/18 08:04 Temperature 98.4 F Pulse Rate 90 92 H 85 Respiratory Rate 17 Blood Pressure 135/62 Pulse Oximetry 99 10/11/18 12:00 10/11/18 12:03 10/11/18 16:00 Temperature 98.3 F Pulse Rate 103 H 104 H 102 H Respiratory Rate 17 Blood Pressure 129/69 Pulse Oximetry 99 10/11/18 16:04 Temperature 98.6 F Pulse Rate 100 H Respiratory Rate 16 Blood Pressure 121/62 Pulse Oximetry 99 Intake & Output 10/11/18 10/11/18 10/12/18 06:59 18:59 06:59 Intake Total 1742.5 / 1742.5 2365.0 / 2365.0 Balance 1742.5 / 1742.5 2365.0 / 2365.0 Weight 54.3 kg Intake: IV 1262.5 / 1262.5 1525.0 / 1525.0 NS Inj 1,000 ML @ 100 mls/hr IV 1000 / 1000 1000 / 1000 .CONT .Q10H [facility] Rx#:[id number] Vancomycin Inj 1,250 MG In NS 262.5 / 262.5 525.0 / 525.0 Inj 250 ML @ 250 mls/hr IV.SIG Q8H [facility] Rx#:[id number] Oral 480 / 480 840 / 840 Other: # Voids 4 5 Date of Last Bowel Movement 10/10/18 10/10/18 # Bowel Movements 0 0 <Vey,Izabel - 10/11/18 21:07> Vital Signs 10/10/18 12:00 10/10/18 12:45 10/10/18 16:00 Temperature 98.7 F 99.1 F Pulse Rate 92 H 97 H 89 Respiratory Rate 18 18 Blood Pressure 118/69 129/73 Pulse Oximetry 99 99 10/10/18 18:34 10/10/18 20:50 10/10/18 23:35 Temperature 98.9 F 98.3 F Pulse Rate 95 H 102 H 104 H Respiratory Rate 17 17 Blood Pressure 129/65 108/53 L Pulse Oximetry 99 98 10/11/18 02:00 10/11/18 04:55 10/11/18 06:00 Temperature 98 F Pulse Rate 98 H 88 90 Respiratory Rate 17 Blood Pressure 127/57 L Pulse Oximetry 98 10/11/18 08:04 Temperature 98.4 F Pulse Rate 85 Respiratory Rate 17 Blood Pressure 135/62 Pulse Oximetry 99 Intake & Output 10/10/18 10/11/18 10/11/18 18:59 06:59 18:59 Intake Total 2245.0 / 2245.0 1742.5 / 1742.5 262.5 / 262.5 Balance 2245.0 / 2245.0 1742.5 / 1742.5 262.5 / 262.5 Weight 54.3 kg Intake: IV 1525.0 / 1525.0 1262.5 / 1262.5 262.5 / 262.5 NS Inj 1,000 ML @ 100 mls/hr IV 1000 / 1000 1000 / 1000 .CONT .Q10H [facility] Rx#:[id number] Vancomycin Inj 1,250 MG In NS 525.0 / 525.0 262.5 / 262.5 262.5 / 262.5 Inj 250 ML @ 250 mls/hr IV.SIG Q8H [facility] Rx#:[id number] Oral 720 / 720 480 / 480 Other: # Voids 5 4 Date of Last Bowel Movement 10/10/18 10/10/18 # Bowel Movements 0 0 <Corine De La O - 10/11/18 09:41> Narrative: GENERAL: Pleasant, cooperative, thin young female who does not appear to be in acute distress SKIN: Warm and dry. HEAD: Normocephalic. EYES: No scleral icterus. No injection or drainage. NECK: Supple, trachea midline. No JVD or lymphadenopathy. CARDIOVASCULAR: Regular rate and rhythm without murmurs, gallops, or rubs. RESPIRATORY: Breath sounds equal bilaterally. No wheezing or crackles .no accessory muscle use. GASTROINTESTINAL: Abdomen soft, non-tender, nondistended. Normoactive bowel sounds EXTREMITIES: As above. No calf tenderness bilaterally NEUROLOGICAL: Awake, alert, and oriented x 3. Non-focal. <Corine De La O 10/11/18 09:56> Assessment and Plan - Assessment (1) Sepsis due to skin infection Code(s): L03.90 - Cellulitis, unspecified; A41.9 - Sepsis, unspecified organism Status: Acute (2) Abscess of left upper extremity Code(s): L02.414 - Cutaneous abscess of left upper limb Status: Acute (3) Cellulitis of left upper extremity Code(s): L03.114 - Cellulitis of left upper limb Status: Acute (4) Intravenous drug abuse Code(s): F19.10 - Other psychoactive substance abuse, uncomplicated Status: Chronic (5) Hepatitis C antibody positive in blood Code(s): R76.8 - Other specified abnormal immunological findings in serum Status: Acute (6) Nutrition, metabolism, and development symptoms Code(s): R63.8 - Other symptoms and signs concerning food and fluid intake Status: Acute <Izabel Bradley - 10/11/18 21:07> (1) Sepsis due to skin infection Code(s): L03.90 - Cellulitis, unspecified; A41.9 - Sepsis, unspecified organism Status: Acute (2) Cellulitis of left upper extremity Code(s): L03.114 - Cellulitis of left upper limb Status: Acute (3) Intravenous drug abuse Code(s): F19.10 - Other psychoactive substance abuse, uncomplicated Status: Chronic (4) Nutrition, metabolism, and development symptoms Code(s): R63.8 - Other symptoms and signs concerning food and fluid intake Status: Acute (5) Hepatitis C antibody positive in blood Code(s): R76.8 - Other specified abnormal immunological findings in serum Status: Acute <Corine De La O 10/11/18 14:40> - Assessment and Plan 1. Sepsis- likely 2/2 LUE abscess/cellulitis CBC within normal limits, white cell count normalized Wound fluid cultures positive for MRSA Repeat blood cultures positive for MRSA x 1 day, will order repeat blood cultures Currently on high-dose vancomycin, goal 1520, ID is following 2D echo performed on 10/08 showed no valvular vegetations or other structural abnormalities Pain control: currently on morphine for breakthrough, started etodolac 30mg TID for added pain control 2. IVDA Currently on trazodone and Ativan for anxiety Case management has offered community resources for cessation 3. Hepatitis C Discussed with patient about test results, verbalized understanding with all questions answered Elevated hep C RNA load, suggesting active infection 4. Nutrition, Metabolism, development symptoms NS IVF at 100 mL/hr On regular adult diet Electrolytes currently within normal limits, replete as needed DVT Prophylaxis: Early ambulation. SCDs if not ambulatory. GI Prophylaxis:On pantoprazole PRN anti-HTN: None indicated on admission. Consider clonidine 0.1mg PO PRN for SBP > 180/ and/or DBP > 100 <Corine De La O - 10/11/18 14:41> - Attending Attestation Patient seen and examined, discussed with medical student and resident team. I agree with assessment and management as documented and discussed with me. I personally performed and verify what has been documented by medical student. Pt reports pain is under good control. Continue IV antibiotics. Additional diagnosis: Bacteremia: MRSA + blood culture. ANtibiotics per ID. <Izabel Bradley - 10/11/18 21:07>
[2018-10-11] MEDS: LORazepam 0.5 MG Tablet PO PRN ×3 (10:35→18:40)
[2018-10-11] MEDS ORDERED: Etodolac 300 MG Capsule PO PRN (13:00)
[2018-10-11] MEDS: traZODone 50 MG Tablet PO SCH (21:05)
--- NOTE | 2018-10-11 23:18 | P.PNID ---
Subjective Remarks: pt seen during rounds earlier today blood culture + for MRSA 1/4 bottles 2 D echo no veg's no fever improved LUE pain Antibiotics: vanco Allergies/Adverse Reactions: Allergies No Known Allergies Allergy (Unverified 02/07/18 01:05) Objective Vital Signs 10/10/18 23:35 10/11/18 02:00 10/11/18 04:55 Temperature 98.3 F 98 F Pulse Rate 104 H 98 H 88 Respiratory Rate 17 17 Blood Pressure 108/53 L 127/57 L Pulse Oximetry 98 98 10/11/18 06:00 10/11/18 08:00 10/11/18 08:04 Temperature 98.4 F Pulse Rate 90 92 H 85 Respiratory Rate 17 Blood Pressure 135/62 Pulse Oximetry 99 10/11/18 12:00 10/11/18 12:03 10/11/18 16:00 Temperature 98.3 F Pulse Rate 103 H 104 H 102 H Respiratory Rate 17 Blood Pressure 129/69 Pulse Oximetry 99 10/11/18 16:04 10/11/18 22:37 Temperature 98.6 F 98.8 F Pulse Rate 100 H 111 H Respiratory Rate 16 17 Blood Pressure 121/62 112/60 Pulse Oximetry 99 98 Intake & Output 10/11/18 10/11/18 10/12/18 06:59 18:59 06:59 Intake Total 1742.5 / 1742.5 2365.0 / 2365.0 Balance 1742.5 / 1742.5 2365.0 / 2365.0 Weight 54.3 kg Intake: IV 1262.5 / 1262.5 1525.0 / 1525.0 NS Inj 1,000 ML @ 100 mls/hr IV 1000 / 1000 1000 / 1000 .CONT .Q10H [facility] Rx#:[id number] Vancomycin Inj 1,250 MG In NS 262.5 / 262.5 525.0 / 525.0 Inj 250 ML @ 250 mls/hr IV.SIG Q8H [facility] Rx#:[id number] Oral 480 / 480 840 / 840 Other: # Voids 4 5 Date of Last Bowel Movement 10/10/18 10/10/18 # Bowel Movements 0 0 10/11/18 13:20 Blood - Peripheral Aerobic Blood Culture - Pending 10/11/18 13:20 Blood - Peripheral Anaerobic Blood Culture - Pending 10/11/18 13:15 Blood - Peripheral Aerobic Blood Culture - Pending 10/11/18 13:15 Blood - Peripheral Anaerobic Blood Culture - Pending 10/09/18 03:47 Blood - Peripheral Aerobic Blood Culture - Preliminary S. aureus MRSA 10/09/18 03:47 Blood - Peripheral Anaerobic Blood Culture - Preliminary No growth in 2 days 10/09/18 03:43 Blood - Peripheral Aerobic Blood Culture - Preliminary No growth in 2 days 10/09/18 03:43 Blood - Peripheral Anaerobic Blood Culture - Preliminary No growth in 2 days 10/05/18 18:45 Blood - Peripheral Aerobic Blood Culture - Final No growth in 5 days 10/05/18 18:45 Blood - Peripheral Anaerobic Blood Culture - Final No growth in 5 days 10/05/18 18:50 Blood - Peripheral Aerobic Blood Culture - Final No growth in 5 days 10/05/18 18:50 Blood - Peripheral Anaerobic Blood Culture - Final No growth in 5 days 10/05/18 01:21 Blood - Peripheral Aerobic Blood Culture - Final No growth in 5 days 10/05/18 01:21 Blood - Peripheral Anaerobic Blood Culture - Final No growth in 5 days 10/05/18 01:26 Blood - Peripheral Aerobic Blood Culture - Final No growth in 5 days 10/05/18 01:26 Blood - Peripheral Anaerobic Blood Culture - Final No growth in 5 days 10/07/18 11:05 Wound - Arm Gram Stain - Final 10/07/18 11:05 Wound - Arm Wound Culture - Final S. aureus MRSA Lab - Hematology Results 10/10/18 10/11/18 05:31 06:14 WBC 7.6 7.8 RBC 3.81 L 4.04 Hgb 11.1 L 11.7 Hct 32.0 L 34.3 L MCV 84.1 84.9 MCH 29.2 29.1 MCHC 34.7 34.2 RDW 15.9 15.7 Plt Count 425 479 H MPV 7.0 7.1 Neut % (Auto) 67.4 66.8 Lymph % (Auto) 19.0 20.1 Bailey % (Auto) 8.8 H 7.3 Eos % (Auto) 4.5 H 5.4 H Baso % (Auto) 0.3 0.4 Neut # (Auto) 5.1 5.2 Lymph # (Auto) 1.4 1.6 Bailey # (Auto) 0.7 0.6 Eos # (Auto) 0.3 0.4 Baso # (Auto) 0.0 0.0 WBC Differential . . Differential Comment Auto diff final Auto diff final Lab - Chemistry Results 10/10/18 10/11/18 17:10 06:14 Sodium 140 141 Potassium 3.8 4.3 Chloride 107 108 H Carbon Dioxide 26.0 24.9 Anion Gap 7 8 BUN 7 8 Creatinine 0.49 L 0.54 Estimated GFR Greater than 89 Greater than 89 Random Glucose 86 88 Calcium 8.2 L 8.3 L Imaging: ITS Impressions Elbow X-Ray 10/05/18 00:01 CONCLUSION: 1. No acute fracture. Humerus X-Ray 10/05/18 00:01 CONCLUSION: 1. No acute fracture. Humerus MRI 10/05/18 01:23 CONCLUSION: 1. 2.0 x 0.9 cm abscess in the anterolateral distal biceps region with regional cellulitis. 2. Subtle elbow joint effusion without definitive abnormal enhancement. 3. No evidence for osteomyelitis. Abscess Drainage 10/06/18 00:00 CONCLUSION: 1. Uncomplicated aspiration of a left antecubital fossa abscess yielding 7 mL of purulent material. Samples were sent for microbiological evaluation. Incidental note is also made of thrombophlebitis of the distal cephalic vein.. Soft Tissue Ultrasound 10/06/18 15:43 CONCLUSION: 1. Thrombophlebitis of the cephalic vein. 2. 4.2 x 2.4 x 1.6 cm fluid collection surrounding the cephalic vein possibly relating to an abscess. Physical Exam: GENERAL: NAD SKIN: Warm and dry. No rash CARDIOVASCULAR: Regular rate and rhythm. No murmurs RESPIRATORY: No accessory muscle use. Clear to auscultation. Breath sounds equal bilaterally. GASTROINTESTINAL: Abdomen soft, non-tender, nondistended. Hepatic and splenic margins not palpable. MUSCULOSKELETAL: Extremities without clubbing, cyanosis, or edema. LUE with dressing in place NEUROLOGICAL: Awake and alert. Non focal Normal speech. PSYCHIATRIC: Appropriate mood and affect; Assessment and Plan - Plan IVDU 2.0 x 0.9 cm abscess in the anterolateral Left distal biceps region with regional cellulitis. Abscess 2/2 MRSA sp I+D Low grade gram MRSA bacetermia Cont high dose vanco keep levels 15-20 If repeat BC remain negative will convert to oral abx dw pt
[2018-10-12] MEDS: Morphine Inj 4 MG/ML Vial IV.PUSH PRN ×8 (00:03→23:03)
[2018-10-12] MEDS: Sod Chloride 0.9% Inj 1,000 ML IV.CONT SCH ×5 (00:03→20:20)
[2018-10-12] MEDS: LORazepam 0.5 MG Tablet PO PRN ×5 (00:06→23:03)
[2018-10-12] MEDS: Vancomycin Inj 1,250 MG in Sodium Chlor 0.9% Inj 250 ML IV.SIG SCH ×3 (05:18→22:20)
[2018-10-12 07:22] LABS: Baso % (Auto) 0.4 % (0.0-2.0); Eos # (Auto) 0.5 th/mm3 (0.0-0.4); Eos % (Auto) 7.1 % (0.0-4.0); Hematocrit 30.5 % (35.0-46.0); Hemoglobin 10.5 gm/dL (11.6-15.3); Lymph # (Auto) 1.5 th/mm3 (1.0-4.8); Lymph % (Auto) 21.9 % (9.0-44.0); Mean Corpuscular HGB Conc 34.5 % (32.0-36.0); Mean Corpuscular Volume 84.1 fL (80.0-100.0); Mean Platelet Volume 7.1 fL (7.0-11.0); Mono # (Auto) 0.5 th/mm3 (0.0-0.9); Mono % (Auto) 7.9 % (0.0-8.0); Neut # (Auto) 4.2 th/mm3 (1.8-7.7); Neut % (Auto) 62.7 % (16.0-70.0); Platelet Count 502 th/mm3 (150-450); Red Blood Count 3.63 mil/mm3 (4.00-5.30); Red Cell Distribution Width 15.9 % (11.6-17.2); White Blood Count 6.7 th/mm3 (4.0-11.0)
[2018-10-12 08:00] LABS: Anion Gap 6 meq/L (5-15); Blood Urea Nitrogen 6 mg/dL (7-18); Calcium 8.2 mg/dL (8.5-10.1); Carbon Dioxide 29.4 meq/L (21.0-32.0); Chloride 106 meq/L (98-107); Glomerular Filtration Rate Greater Than 89 mL/min (>89); Glucose,Random 89 mg/dL (74-106); Potassium 3.9 meq/L (3.5-5.1); Sodium 141 meq/L (136-145)
[2018-10-12] MEDS: Senna/Docusate Sodium 8.6/50 MG Tablet PO SCH ×2 (08:08→20:27)
--- NOTE | 2018-10-12 08:45 | P.PNFP ---
Subjective Interval history: Events overnight: Patient remains tachycardic, max 111 Patient examined today while laying in bed comfortably. Reports difficulty sleeping due to feeling feverish, chills, night sweats. Patient also reports right-sided upper chest pain on inspiration. Patient reports ambulation from bed to the bathroom. denies cough, shortness of breath, abdominal pain, dysuria , nausea, vomiting. <Corine De La O - 10/12/18 12:25> Results - Labs Result diagrams: 10/12/18 06:32 10/12/18 06:32 <Izabel Bradley - 10/12/18 21:14> Abnormal lab results 10/12/18 10/12/18 Range/Units 06:32 06:32 RBC 3.63 L (4.00-5.30) mil/mm3 Hgb 10.5 L (11.6-15.3) gm/dL Hct 30.5 L (35.0-46.0) % Plt Count 502 H (150-450) th/mm3 Eos % (Auto) 7.1 H (0.0-4.0) % Eos # (Auto) 0.5 H (0.0-0.4) th/mm3 BUN 6 L (7-18) mg/dL Calcium 8.2 L (8.5-10.1) mg/dL Short CBC 10/12/18 Range/Units 06:32 WBC 6.7 (4.0-11.0) th/mm3 Hgb 10.5 L (11.6-15.3) gm/dL Hct 30.5 L (35.0-46.0) % Plt Count 502 H (150-450) th/mm3 [facility] 10/12/18 06:32 Sodium 141 Potassium 3.9 Chloride 106 Carbon Dioxide 29.4 BUN 6 L Creatinine 0.51 Calcium 8.2 L <Izabel Bradley - 10/12/18 21:14> Abnormal lab results 10/12/18 10/12/18 Range/Units 06:32 06:32 RBC 3.63 L (4.00-5.30) mil/mm3 Hgb 10.5 L (11.6-15.3) gm/dL Hct 30.5 L (35.0-46.0) % Plt Count 502 H (150-450) th/mm3 Eos % (Auto) 7.1 H (0.0-4.0) % Eos # (Auto) 0.5 H (0.0-0.4) th/mm3 BUN 6 L (7-18) mg/dL Calcium 8.2 L (8.5-10.1) mg/dL Short CBC 10/12/18 Range/Units 06:32 WBC 6.7 (4.0-11.0) th/mm3 Hgb 10.5 L (11.6-15.3) gm/dL Hct 30.5 L (35.0-46.0) % Plt Count 502 H (150-450) th/mm3 BMP 10/12/18 06:32 Sodium 141 Potassium 3.9 Chloride 106 Carbon Dioxide 29.4 BUN 6 L Creatinine 0.51 Calcium 8.2 L <Corine De La O - 10/12/18 08:44> Physical Exam Vital signs: Vital Signs 10/11/18 22:37 10/11/18 23:52 10/12/18 00:00 Temperature 98.8 F 98.3 F Pulse Rate 111 H 118 H 110 H Respiratory Rate 17 20 Blood Pressure 112/60 106/57 L Pulse Oximetry 98 98 10/12/18 03:35 10/12/18 03:55 10/12/18 07:51 Temperature 98.0 F Pulse Rate 108 H 97 H Respiratory Rate 20 18 Blood Pressure 109/63 Pulse Oximetry 99 10/12/18 08:00 10/12/18 12:00 10/12/18 16:00 Temperature 97.2 F L 98.8 F 98.3 F Pulse Rate 87 92 H 89 Respiratory Rate 17 16 15 Blood Pressure 111/56 L 116/58 L 108/52 L Pulse Oximetry 97 99 100 10/12/18 20:25 Temperature 97.9 F Pulse Rate 89 Respiratory Rate 18 Blood Pressure 108/54 L Pulse Oximetry 97 Intake & Output 10/12/18 10/12/18 10/13/18 06:59 18:59 06:59 Intake Total 2025.0 / 2025.0 1182.5 / 1182.5 600 / 600 Balance 2025.0 / 2025.0 1182.5 / 1182.5 600 / 600 Intake: IV 1525.0 / 1525.0 662.5 / 662.5 600 / 600 NS Inj 1,000 ML @ 100 mls/hr IV 1000 / 1000 400 / 400 600 / 600 .CONT .Q10H HENNY Rx#:[id number] Vancomycin Inj 1,250 MG In NS 525.0 / 525.0 262.5 / 262.5 Inj 250 ML @ 250 mls/hr IV.SIG Q8H HENNY Rx#:[id number] Oral 500 / 500 520 / 520 Other: # Voids 4 3 # Bowel Movements 0 <Vey,Izabel - 10/12/18 21:14> Vital Signs 10/11/18 12:00 10/11/18 12:03 10/11/18 16:00 Temperature 98.3 F Pulse Rate 103 H 104 H 102 H Respiratory Rate 17 Blood Pressure 129/69 Pulse Oximetry 99 10/11/18 16:04 10/11/18 19:55 10/11/18 20:00 Temperature 98.6 F Pulse Rate 100 H 107 H Respiratory Rate 16 18 Blood Pressure 121/62 Pulse Oximetry 99 10/11/18 22:37 10/11/18 23:52 10/12/18 00:00 Temperature 98.8 F 98.3 F Pulse Rate 111 H 118 H 110 H Respiratory Rate 17 20 Blood Pressure 112/60 106/57 L Pulse Oximetry 98 98 10/12/18 03:35 10/12/18 03:55 10/12/18 07:51 Temperature 98.0 F Pulse Rate 108 H 97 H Respiratory Rate 20 18 Blood Pressure 109/63 Pulse Oximetry 99 Intake & Output 10/11/18 10/12/18 10/12/18 18:59 06:59 18:59 Intake Total 2365.0 / 2365.0 2025.0 / 2025.0 Balance 2365.0 / 2365.0 2025.0 / 2025.0 Intake: IV 1525.0 / 1525.0 1525.0 / 1525.0 NS Inj 1,000 ML @ 100 mls/hr IV 1000 / 1000 1000 / 1000 .CONT .Q10H HENNY Rx#:[id number] Vancomycin Inj 1,250 MG In NS 525.0 / 525.0 525.0 / 525.0 Inj 250 ML @ 250 mls/hr IV.SIG Q8H HENNY Rx#:[id number] Oral 840 / 840 500 / 500 Other: # Voids 5 4 Date of Last Bowel Movement 10/10/18 # Bowel Movements 0 0 <Corine De La O - 10/12/18 08:44> Narrative: GENERAL: Pleasant, cooperative, thin young female who does not appear to be in acute distress SKIN: Warm and dry. HEAD: Normocephalic. EYES: No scleral icterus. No injection or drainage. NECK: Supple, trachea midline. No JVD or lymphadenopathy. CARDIOVASCULAR: Regular rate and rhythm without murmurs, gallops, or rubs. RESPIRATORY: Breath sounds equal bilaterally. Chest nontender to palpation bilaterally. no wheezing or crackles .no accessory muscle use. GASTROINTESTINAL: Abdomen soft, non-tender, nondistended. Normoactive bowel sounds EXTREMITIES: Increased range of motion with guidance of left upper extremity. Improved left upper extremity edema, appropriate capillary refill, 5 out of 5 muscle strength. Left upper extremity toño wrap bandage still in place. mild right calf tenderness NEUROLOGICAL: Awake, alert, and oriented x 3. Non-focal. <Corine De La O - 10/12/18 08:44> Assessment and Plan - Assessment (1) Sepsis due to skin infection Code(s): L03.90 - Cellulitis, unspecified; A41.9 - Sepsis, unspecified organism Status: Acute (2) Abscess of left upper extremity Code(s): L02.414 - Cutaneous abscess of left upper limb Status: Acute (3) Cellulitis of left upper extremity Code(s): L03.114 - Cellulitis of left upper limb Status: Acute (4) Intravenous drug abuse Code(s): F19.10 - Other psychoactive substance abuse, uncomplicated Status: Chronic (5) Hepatitis C antibody positive in blood Code(s): R76.8 - Other specified abnormal immunological findings in serum Status: Acute (6) Nutrition, metabolism, and development symptoms Code(s): R63.8 - Other symptoms and signs concerning food and fluid intake Status: Acute <Izabel Bradley - 10/12/18 21:14> (1) Sepsis due to skin infection Code(s): L03.90 - Cellulitis, unspecified; A41.9 - Sepsis, unspecified organism Status: Acute (2) Cellulitis of left upper extremity Code(s): L03.114 - Cellulitis of left upper limb Status: Acute (3) Intravenous drug abuse Code(s): F19.10 - Other psychoactive substance abuse, uncomplicated Status: Chronic (4) Nutrition, metabolism, and development symptoms Code(s): R63.8 - Other symptoms and signs concerning food and fluid intake Status: Acute (5) Hepatitis C antibody positive in blood Code(s): R76.8 - Other specified abnormal immunological findings in serum Status: Acute <Corine De La O - 10/12/18 12:26> - Assessment and Plan 1. Sepsis- likely 2/2 LUE abscess/cellulitis s/p I&D for LUE abscess POD#5, will f/u with Dr. Turner in 2wks CBC within normal limits, white cell count normalized. Afebrile for last 24hrs Wound fluid cultures positive for MRSA Blood cultures positive for MRSA x 1 day, repeat blood cultures negative x1d If blood cultures are negative for 72 hours, can transition to p.o. antibiotics Currently on high-dose vancomycin, goal 1520, ID is following 2D echo performed on 10/08 showed no valvular vegetations or other structural abnormalities Pain control: currently on morphine for breakthrough, started etodolac 30mg TID for added pain control 2. IVDA Currently on trazodone and Ativan for anxiety Case management has offered community resources for illicit drug use cessation 3. Hepatitis C Discussed with patient about test results, verbalized understanding with all questions answered Elevated hep C RNA load, suggesting active infection 4. Nutrition, Metabolism, development symptoms NS IVF at 100 mL/hr On regular adult diet Electrolytes currently within normal limits, replete as needed DVT Prophylaxis: Early ambulation. SCDs if not ambulatory. GI Prophylaxis:On pantoprazole PRN anti-HTN: None indicated on admission. Consider clonidine 0.1mg PO PRN for SBP > 180/ and/or DBP > 100 <Corine De La O - 10/12/18 12:30> - Attending Attestation Patient seen and examined, discussed with medical student and resident team. I agree with assessment and management as documented and discussed with me. I personally performed and verify history, physical, and medical decision making. No new events. Anticipate discharge Monday, when blood cultures negative x 72 hours; on Bactrim and doxycycline. <Izabel Bradley - 10/12/18 21:14>
[2018-10-12] MEDS: Etodolac 300 MG Capsule PO SCH ×2 (13:31→22:21)
[2018-10-12] MEDS: traZODone 50 MG Tablet PO SCH (20:27)
[2018-10-13] MEDS: Sod Chloride 0.9% Inj 1,000 ML IV.CONT SCH ×2 (03:06→12:10)
[2018-10-13] MEDS: Etodolac 300 MG Capsule PO SCH ×3 (06:03→21:25)
[2018-10-13] MEDS: Morphine Inj 4 MG/ML Vial IV.PUSH PRN ×4 (06:04→18:10)
[2018-10-13] MEDS: Vancomycin Inj 1,250 MG in Sodium Chlor 0.9% Inj 250 ML IV.SIG SCH ×3 (06:06→21:25)
[2018-10-13 06:27] LABS: Baso % (Auto) 0.5 % (0.0-2.0); Eos # (Auto) 0.5 th/mm3 (0.0-0.4); Eos % (Auto) 9.1 % (0.0-4.0); Hematocrit 34.2 % (35.0-46.0); Hemoglobin 11.5 gm/dL (11.6-15.3); Lymph # (Auto) 1.5 th/mm3 (1.0-4.8); Lymph % (Auto) 26.4 % (9.0-44.0); Mean Corpuscular HGB Conc 33.6 % (32.0-36.0); Mean Corpuscular Hemoglobin 28.6 pg (27.0-34.0); Mean Corpuscular Volume 85.2 fL (80.0-100.0); Mono # (Auto) 0.5 th/mm3 (0.0-0.9); Mono % (Auto) 9.3 % (0.0-8.0); Neut % (Auto) 54.7 % (16.0-70.0); Platelet Count 522 th/mm3 (150-450); Red Blood Count 4.01 mil/mm3 (4.00-5.30); Red Cell Distribution Width 16.2 % (11.6-17.2); White Blood Count 5.6 th/mm3 (4.0-11.0)
[2018-10-13] MEDS: Senna/Docusate Sodium 8.6/50 MG Tablet PO SCH ×2 (09:02→21:25)
[2018-10-13] MEDS: LORazepam 0.5 MG Tablet PO PRN ×3 (09:02→18:10)
[2018-10-13] MEDS ORDERED: Ibuprofen 600 MG Tablet PO PRN (11:57)
--- NOTE | 2018-10-13 12:01 | P.PNFP ---
Subjective Interval history: Patient was seen and examined at bedside this morning. She is feeling well and has no acute complaints. She notes she is able to move her arm a lot more easily of late. She denies fever, chest pain, shortness of breath, nausea, vomiting, pain. She amylase without difficulty and is eating well. She is hopeful to be able to go home soon and notes that it has been discussed that she may transition to p.o. antibiotics tomorrow. <Chidi Irlanda Simons - 10/13/18 12:00> Results - Labs Result diagrams: 10/13/18 05:57 10/12/18 06:32 <Danika Bradleye - 10/14/18 09:26> Abnormal lab results 10/13/18 Range/Units 05:57 Hgb 11.5 L (11.6-15.3) gm/dL Hct 34.2 L (35.0-46.0) % Plt Count 522 H (150-450) th/mm3 [place] % (Auto) 9.3 H (0.0-8.0) % Eos % (Auto) 9.1 H (0.0-4.0) % Eos # (Auto) 0.5 H (0.0-0.4) th/mm3 Short CBC 10/13/18 Range/Units 05:57 WBC 5.6 (4.0-11.0) th/mm3 Hgb 11.5 L (11.6-15.3) gm/dL Hct 34.2 L (35.0-46.0) % Plt Count 522 H (150-450) th/mm3 <Chidi Irlanda Simons L - 10/13/18 12:00> Physical Exam Vital signs: Vital Signs 10/13/18 12:00 10/13/18 16:00 10/13/18 19:58 Temperature 98.0 F 98.2 F Pulse Rate 94 H 110 H 106 H Respiratory Rate 15 16 Blood Pressure 108/61 115/62 Pulse Oximetry 100 100 10/13/18 20:00 10/13/18 23:52 10/14/18 00:00 Temperature 98.3 F 97.8 F Pulse Rate 109 H 97 H 97 H Respiratory Rate 16 16 Blood Pressure 117/61 118/55 L Pulse Oximetry 99 96 10/14/18 04:00 10/14/18 04:03 Temperature 98 F Pulse Rate 87 85 Respiratory Rate 16 Blood Pressure 116/62 Pulse Oximetry 100 Intake & Output 10/13/18 10/14/18 10/14/18 18:59 06:59 18:59 Intake Total 1257.5 / 1257.5 2029 Balance 1257.5 / 1257.5 2029 Weight 64.3 kg Intake: IV 537.5 / 537.5 1550 / 1550 NS Inj 1,000 ML @ 100 mls/hr IV 1000 / 1000 .CONT .Q10H [facility]ENNY Rx#:[id number] Vancomycin Inj 1,250 MG In NS 537.5 / 537.5 550 / 550 Inj 250 ML @ 250 mls/hr IV.SIG Q8H HENNY Rx#:[id number] Oral 720 / 720 480 / 480 Other: # Voids 3 5 Date of Last Bowel Movement 10/13/18 10/13/18 # Bowel Movements 1 <Vey,Izabel - 10/14/18 09:26> Vital Signs 10/12/18 12:00 10/12/18 16:00 10/12/18 20:00 Temperature 98.8 F 98.3 F Pulse Rate 92 H 89 98 H Respiratory Rate 16 15 Blood Pressure 116/58 L 108/52 L Pulse Oximetry 99 100 10/12/18 20:25 10/12/18 23:35 10/13/18 00:19 Temperature 97.9 F 97.8 F Pulse Rate 89 95 H 103 H Respiratory Rate 18 18 Blood Pressure 108/54 L 103/53 L Pulse Oximetry 97 96 10/13/18 03:15 10/13/18 04:08 10/13/18 06:02 Temperature 97.5 F L Pulse Rate 85 88 Respiratory Rate 17 Blood Pressure 95/53 L 108/57 L Pulse Oximetry 98 10/13/18 08:00 Temperature 97.4 F L Pulse Rate 90 Respiratory Rate 14 Blood Pressure 109/54 L Pulse Oximetry 100 Intake & Output 10/12/18 10/13/18 10/13/18 18:59 06:59 18:59 Intake Total 1182.5 / 1182.5 875 / 875 275 / 275 Balance 1182.5 / 1182.5 875 / 875 275 / 275 Weight 51 kg Intake: IV 662.5 / 662.5 875 / 875 275 / 275 NS Inj 1,000 ML @ 100 mls/hr IV 400 / 400 600 / 600 .CONT .Q10H HENNY Rx#:[id number] Vancomycin Inj 1,250 MG In NS 262.5 / 262.5 275 / 275 275 / 275 Inj 250 ML @ 250 mls/hr IV.SIG Q8H HENNY Rx#:[id number] Oral 520 / 520 Other: # Voids 3 2 Date of Last Bowel Movement 10/09/18 # Bowel Movements 0 <Irlanda Urban - 10/13/18 12:00> Narrative: GENERAL: Well-appearing but thin female in no apparent distress lying in bed. SKIN: Warm and dry. HEAD: Atraumatic. Normocephalic. EYES: Pupils equal and round. No scleral icterus. No injection or drainage. ENT: No nasal bleeding or discharge. Mucous membranes pink and moist. NECK: Trachea midline. No JVD. CARDIOVASCULAR: Regular rate and rhythm. No murmurs noted. RESPIRATORY: No accessory muscle use. Clear to auscultation. Breath sounds equal bilaterally. GASTROINTESTINAL: Abdomen soft, non-tender, nondistended. Hepatic and splenic margins not palpable. MUSCULOSKELETAL: Increased range of motion with guidance of left upper extremity. Improved left upper extremity edema, appropriate capillary refill, 5 out of 5 muscle strength. Left upper extremity toño wrap bandage still in place dry. NEUROLOGICAL: Awake and alert. No obvious cranial nerve deficits. Motor function and strength grossly within normal limits. <Irlanda Urban - 10/13/18 12:00> Assessment and Plan - Assessment (1) Abscess of left upper extremity Code(s): L02.414 - Cutaneous abscess of left upper limb Status: Acute (2) Sepsis due to skin infection Code(s): L03.90 - Cellulitis, unspecified; A41.9 - Sepsis, unspecified organism Status: Resolved (3) Cellulitis of left upper extremity Code(s): L03.114 - Cellulitis of left upper limb Status: Acute (4) Intravenous drug abuse Code(s): F19.10 - Other psychoactive substance abuse, uncomplicated Status: Chronic (5) Hepatitis C antibody positive in blood Code(s): R76.8 - Other specified abnormal immunological findings in serum Status: Acute (6) Anxiety Code(s): F41.9 - Anxiety disorder, unspecified Status: Acute (7) Nutrition, metabolism, and development symptoms Code(s): R63.8 - Other symptoms and signs concerning food and fluid intake Status: Acute <Izabel Bradley - 10/14/18 09:26> (1) Abscess of left upper extremity Code(s): L02.414 - Cutaneous abscess of left upper limb Status: Acute Plan: 22-year-old female admitted 10/05 with left arm cellulitis and elbow MRI showing abscess 2 cm x 0.9cm in size with trace joint effusion. Location is anterior lateral aspect of upper extremity proximal to elbow joint. Left humerus and elbow x-rays unremarkable. -S/p aspiration of 7ml of purulent fluid positive for MRSA with date of procedure 10/06 -Afebrile Plan: -Wound cultures positive for MRSA on 10/06 -Initial blood cultures 10/05: No growth (final) -Blood culture 10/09 MRSA 08/31 bottles (final) -Blood culture 10/11 no growth to date -Blood culture 10/12 no growth to date -Infectious disease consulted, appreciate recommendations Continue Vancomycin, goal to keep levels between 15-20 Vancomycin trough on 10/09 increased to 14.7 Anticipate transitioning to p.o. antibiotics if repeat blood cultures continue to show no growth -Echo: Normal left ventricular size, EF 60-65%, no vegetations noted -Occupational Therapy consult No occupational therapy recommendations upon discharge -Case management consult Urinalysis: Negative UDS: Positive for opiates, amphetamines, and cannabinoids Positive Hep C, patient informed of dx today, all questions answered -Pain control: Lodine scheduled, with morphine only for breakthrough pain -Ativan 0.5mg PRN for anxiety Follow up: Pending blood cultures as noted above (2) Sepsis due to skin infection Code(s): L03.90 - Cellulitis, unspecified; A41.9 - Sepsis, unspecified organism Status: Resolved Plan: Sepsis resolved, blood cultures did show systemic infection as recently as 10/09 as noted (3) Cellulitis of left upper extremity Code(s): L03.114 - Cellulitis of left upper limb Status: Acute Plan: See plan for abscess of left upper extremity (4) Intravenous drug abuse Code(s): F19.10 - Other psychoactive substance abuse, uncomplicated Status: Chronic Plan: Patient is chronic IV drug user and notes use of multiple skin sites for heroin , last use 10/04. She does not express any interest in quitting. -Medical management for infection -Case management for offering patient community resources if interested (5) Hepatitis C antibody positive in blood Code(s): R76.8 - Other specified abnormal immunological findings in serum Status: Acute Plan: IVDU positive for Hep C on admission. -Viral load ordered and 5750 on 10/07 -HIV negative -Hepatitis A and B negative -GI consult not ordered at this time as patient is a current IVDU with no endorsement of plans to quit (6) Anxiety Code(s): F41.9 - Anxiety disorder, unspecified Status: Acute Plan: Trazodone 50mg hs and Ativan 0.5 mg PO q4hr PRN (7) Nutrition, metabolism, and development symptoms Code(s): R63.8 - Other symptoms and signs concerning food and fluid intake Status: Acute Plan: Fluids: IVF at 100mls/hr Electrolytes: Replete as needed Diet: regular DVT ppx: SCDs <Irlanda Urban - 10/13/18 11:40> - Assessment and Plan Discussed Condition With: Discussed with Dr. Johnson <Irlanda Urban - 10/13/18 12:00> Discharge Planning: Patient is clinically improving but did have positive blood culture on 10/09. Repeat blood culture so far showing no growth. Patient may be able to go home in 1-2 days pending blood cultures are still negative. She will go home with p.o. antibiotics most likely. Case management consulted. <Irlanda Urban - 10/13/18 12:00> - Attending Attestation Patient seen and examined the morning of 10/13/2018, discussed with resident team. I agree with assessment and management as documented and discussed with me. Pt reports ROM of arm is improving. Pain is improving. She is hopeful to go home soon. <Izabel Bradley - 10/14/18 09:26>
[2018-10-13] MEDS: traZODone 50 MG Tablet PO SCH (21:25)
[2018-10-14] MEDS: Etodolac 300 MG Capsule PO SCH ×2 (05:20→13:16)
[2018-10-14] MEDS: Vancomycin Inj 1,250 MG in Sodium Chlor 0.9% Inj 250 ML IV.SIG SCH ×2 (05:20→13:16)
[2018-10-14] MEDS: Morphine Inj 4 MG/ML Vial IV.PUSH PRN ×2 (07:55→14:38)
[2018-10-14] MEDS: LORazepam 0.5 MG Tablet PO PRN ×2 (07:56→13:16)
[2018-10-14] MEDS: Senna/Docusate Sodium 8.6/50 MG Tablet PO SCH (07:59)
[2018-10-14] MEDS: Sod Chloride 0.9% Inj 1,000 ML IV.CONT SCH ×3 (09:39→11:23)
[2018-10-14 09:58] LABS: Baso % (Auto) 0.2 % (0.0-2.0); Eos # (Auto) 0.5 th/mm3 (0.0-0.4); Eos % (Auto) 8.8 % (0.0-4.0); Hematocrit 34.8 % (35.0-46.0); Hemoglobin 11.6 gm/dL (11.6-15.3); Lymph # (Auto) 1.5 th/mm3 (1.0-4.8); Lymph % (Auto) 26.6 % (9.0-44.0); Mean Corpuscular HGB Conc 33.4 % (32.0-36.0); Mean Corpuscular Hemoglobin 28.5 pg (27.0-34.0); Mean Corpuscular Volume 85.4 fL (80.0-100.0); Mean Platelet Volume 6.9 fL (7.0-11.0); Mono # (Auto) 0.3 th/mm3 (0.0-0.9); Mono % (Auto) 5.9 % (0.0-8.0); Neut # (Auto) 3.3 th/mm3 (1.8-7.7); Neut % (Auto) 58.5 % (16.0-70.0); Platelet Count 521 th/mm3 (150-450); Red Blood Count 4.08 mil/mm3 (4.00-5.30); Red Cell Distribution Width 15.5 % (11.6-17.2); White Blood Count 5.6 th/mm3 (4.0-11.0)
--- NOTE | 2018-10-14 10:20 | P.PNFP ---
Subjective Interval history: Patient seen and examined at bedside this am. No acute events overnight. Patient Left arm ROM is improving. Pain is well controlled. Endorses cold sweats. Denies fever, chills, cp, abd pain, or n/v. She has no further questions, understand that she will be going home today with po abx. She stated she is interested in obtaining information to help her stop IVDU. <Josep Myrick - 10/14/18 10:20> Results - Labs Result diagrams: 10/14/18 09:21 10/14/18 09:21 <Izabel Bradley - 10/14/18 21:10> Abnormal lab results 10/14/18 Range/Units 09:21 Hct 34.8 L (35.0-46.0) % Plt Count 521 H (150-450) th/mm3 MPV 6.9 L (7.0-11.0) fL Eos % (Auto) 8.8 H (0.0-4.0) % Eos # (Auto) 0.5 H (0.0-0.4) th/mm3 Short CBC 10/14/18 Range/Units 09:21 WBC 5.6 (4.0-11.0) th/mm3 Hgb 11.6 (11.6-15.3) gm/dL Hct 34.8 L (35.0-46.0) % Plt Count 521 H (150-450) th/mm3 BMP 10/14/18 09:21 Sodium 142 Potassium 4.1 Chloride 107 Carbon Dioxide 28.1 BUN 9 Creatinine 0.65 Calcium 8.8 <Izabel Bradley - 10/14/18 21:10> Abnormal lab results 10/14/18 Range/Units 09:21 Hct 34.8 L (35.0-46.0) % Plt Count 521 H (150-450) th/mm3 MPV 6.9 L (7.0-11.0) fL Eos % (Auto) 8.8 H (0.0-4.0) % Eos # (Auto) 0.5 H (0.0-0.4) th/mm3 Short CBC 10/14/18 Range/Units 09:21 WBC 5.6 (4.0-11.0) th/mm3 Hgb 11.6 (11.6-15.3) gm/dL Hct 34.8 L (35.0-46.0) % Plt Count 521 H (150-450) th/mm3 <Rashadroxydo GarayJosep D - 10/14/18 10:20> Physical Exam Vital signs: Vital Signs 10/13/18 23:52 10/14/18 00:00 10/14/18 04:00 Temperature 97.8 F 98 F Pulse Rate 97 H 97 H 87 Respiratory Rate 16 16 Blood Pressure 118/55 L 116/62 Pulse Oximetry 96 100 10/14/18 04:03 10/14/18 08:00 10/14/18 11:55 Temperature 97.8 F 98.4 F Pulse Rate 85 87 105 H Respiratory Rate 18 18 Blood Pressure 114/55 L 124/65 Pulse Oximetry 99 99 10/14/18 12:00 Temperature Pulse Rate 102 H Respiratory Rate Blood Pressure Pulse Oximetry Intake & Output 10/14/18 10/14/18 10/15/18 06:59 18:59 06:59 Intake Total 2029 1000 / 1000 Balance 2029 1000 / 1000 Weight 64.3 kg Intake: IV 1550 / 1550 1000 / 1000 NS Inj 1,000 ML @ 100 mls/hr IV 1000 / 1000 1000 / 1000 .CONT .Q10H HENNY Rx#:[id number] Vancomycin Inj 1,250 MG In NS 550 / 550 Inj 250 ML @ 250 mls/hr IV.SIG Q8H HENNY Rx#:[id number] Oral 480 / 480 Other: # Voids 5 Date of Last Bowel Movement 10/13/18 10/13/18 <Izabel Bradley - 10/14/18 21:10> Vital Signs 10/13/18 12:00 10/13/18 16:00 10/13/18 19:58 Temperature 98.0 F 98.2 F Pulse Rate 94 H 110 H 106 H Respiratory Rate 15 16 Blood Pressure 108/61 115/62 Pulse Oximetry 100 100 10/13/18 20:00 10/13/18 23:52 10/14/18 00:00 Temperature 98.3 F 97.8 F Pulse Rate 109 H 97 H 97 H Respiratory Rate 16 16 Blood Pressure 117/61 118/55 L Pulse Oximetry 99 96 10/14/18 04:00 10/14/18 04:03 10/14/18 08:00 Temperature 98 F 97.8 F Pulse Rate 87 85 87 Respiratory Rate 16 18 Blood Pressure 116/62 114/55 L Pulse Oximetry 100 99 Intake & Output 10/13/18 10/14/18 10/14/18 18:59 06:59 18:59 Intake Total 1257.5 / 1257.5 2029 Balance 1257.5 / 1257.5 2029 Weight 64.3 kg Intake: IV 537.5 / 537.5 1550 / 1550 NS Inj 1,000 ML @ 100 mls/hr IV 1000 / 1000 .CONT .Q10H HENNY Rx#:[id number] Vancomycin Inj 1,250 MG In NS 537.5 / 537.5 550 / 550 Inj 250 ML @ 250 mls/hr IV.SIG Q8H HENNY Rx#:[id number] Oral 720 / 720 480 / 480 Other: # Voids 3 5 Date of Last Bowel Movement 10/13/18 10/13/18 10/13/18 # Bowel Movements 1 <Josep Myrick - 10/14/18 10:20> Narrative: Narrative: GENERAL: Well-appearing but thin female in no apparent distress lying in bed. SKIN: Warm and dry. HEAD: Atraumatic. Normocephalic. EYES: Pupils equal and round. No scleral icterus. No injection or drainage. ENT: No nasal bleeding or discharge. Mucous membranes pink and moist. NECK: Trachea midline. No JVD. CARDIOVASCULAR: Regular rate and rhythm. No murmurs noted. RESPIRATORY: No accessory muscle use. Clear to auscultation. Breath sounds equal bilaterally. GASTROINTESTINAL: Abdomen soft, non-tender, nondistended. Hepatic and splenic margins not palpable. MUSCULOSKELETAL: Increased range of motion of left upper extremity. Improved left upper extremity edema, appropriate capillary refill, 5 out of 5 muscle strength. Left upper extremity with toño wrap bandage still in place dry and clean. NEUROLOGICAL: Awake and alert. No obvious cranial nerve deficits. Motor function and strength grossly within normal limits. <Josep Myrick - 10/14/18 13:50> Assessment and Plan - Assessment (1) Abscess of left upper extremity Code(s): L02.414 - Cutaneous abscess of left upper limb Status: Acute (2) Cellulitis of left upper extremity Code(s): L03.114 - Cellulitis of left upper limb Status: Acute (3) Intravenous drug abuse Code(s): F19.10 - Other psychoactive substance abuse, uncomplicated Status: Chronic (4) Hepatitis C antibody positive in blood Code(s): R76.8 - Other specified abnormal immunological findings in serum Status: Acute (5) Anxiety Code(s): F41.9 - Anxiety disorder, unspecified Status: Acute (6) Nutrition, metabolism, and development symptoms Code(s): R63.8 - Other symptoms and signs concerning food and fluid intake Status: Acute <Izabel Bradley - 10/14/18 21:10> (1) Abscess of left upper extremity Code(s): L02.414 - Cutaneous abscess of left upper limb Status: Acute Plan: 22-year-old female admitted 10/05 with left arm cellulitis and elbow MRI showing abscess 2 cm x 0.9cm in size with trace joint effusion. Location is anterior lateral aspect of upper extremity proximal to elbow joint. Left humerus and elbow x-rays unremarkable. -S/p aspiration of 7ml of purulent fluid positive for MRSA with date of procedure 10/06 -Afebrile Plan: -Wound cultures positive for MRSA on 10/06 -Initial blood cultures 10/05: No growth (final) -Blood culture 10/09 MRSA 08/31 bottles (final) -Blood culture 10/11 no growth to date -Blood culture 10/12 no growth to date Urinalysis: Negative UDS: Positive for opiates, amphetamines, and cannabinoids Positive Hep C, patient informed of dx, all questions answered -Infectious disease consulted, appreciate recommendations Continue Vancomycin, goal to keep levels between 15-20 Vancomycin trough at goal She will receive second IV dose of vanc at 2pm prior to discharge Due to repeat negative blood cx for 72 hrs patient will be discharged to continue course of p.o. antibiotics bactrim ds 2 tabs BID and doxycycline 100mg BID for 6 more days (total treatment 14days from I&D procedure done on 10/06) -Ortho consulted, appreciate rec Patient to f/u with Dr. Tunrer in 2 wks. Referral ordered. -Echo: Normal left ventricular size, EF 60-65%, no vegetations noted -Occupational Therapy consult No occupational therapy recommendations upon discharge -Case management consult patient will be given information regarding substance abuse rehab upon discharge -Pain control: patient given script for percocet 5 Q6h PRN for pain for 3 days. E forced reviewed with Dr. Bradley on 10/14/18. (2) Sepsis due to skin infection Code(s): L03.90 - Cellulitis, unspecified; A41.9 - Sepsis, unspecified organism Status: Resolved Plan: Sepsis resolved, see plan above (3) Cellulitis of left upper extremity Code(s): L03.114 - Cellulitis of left upper limb Status: Acute Plan: See plan for abscess of left upper extremity (4) Intravenous drug abuse Code(s): F19.10 - Other psychoactive substance abuse, uncomplicated Status: Chronic Plan: Patient is chronic IV drug user and notes use of multiple skin sites for heroin , last use 10/04. Interested in quitting. -Medical management for infection -Case management for offering patient community resources if interested (5) Hepatitis C antibody positive in blood Code(s): R76.8 - Other specified abnormal immunological findings in serum Status: Acute Plan: IVDU positive for Hep C on admission. -Viral load ordered and 5750 on 10/07 -HIV negative -Hepatitis A and B negative -GI referral ordered for outpatient appt (6) Anxiety Code(s): F41.9 - Anxiety disorder, unspecified Status: Acute Plan: Trazodone 50mg hs and Ativan 0.5 mg PO q4hr PRN (7) Nutrition, metabolism, and development symptoms Code(s): R63.8 - Other symptoms and signs concerning food and fluid intake Status: Acute Plan: Fluids: not indicated at this time Electrolytes: Replete as needed Diet: regular DVT ppx: SCDs <Taon R2Josep D - 10/14/18 13:37> - Assessment and Plan 1. Sepsis- likely 2/2 LUE abscess/cellulitis s/p I&D for LUE abscess POD#5, will f/u with Dr. Turner in 2wks CBC within normal limits, white cell count normalized. Afebrile for last 24hrs Wound fluid cultures positive for MRSA Blood cultures positive for MRSA x 1 day, repeat blood cultures negative x1d If blood cultures are negative for 72 hours, can transition to p.o. antibiotics Currently on high-dose vancomycin, goal 1520, ID is following 2D echo performed on 10/08 showed no valvular vegetations or other structural abnormalities Pain control: currently on morphine for breakthrough, started etodolac 30mg TID for added pain control 2. IVDA Currently on trazodone and Ativan for anxiety Case management has offered community resources for illicit drug use cessation 3. Hepatitis C Discussed with patient about test results, verbalized understanding with all questions answered Elevated hep C RNA load, suggesting active infection 4. Nutrition, Metabolism, development symptoms NS IVF at 100 mL/hr On regular adult diet Electrolytes currently within normal limits, replete as needed DVT Prophylaxis: Early ambulation. SCDs if not ambulatory. GI Prophylaxis:On pantoprazole PRN anti-HTN: None indicated on admission. Consider clonidine 0.1mg PO PRN for SBP > 180/ and/or DBP > 100 <Josep Myrick - 10/14/18 10:20> - Attending Attestation Patient seen and examined this morning, discussed with Dr Joya. I agree with assessment and management as documented and discussed with me. Pt is using her arm more. She is excited to go home today. She reports she will go to live with her mother, and it is a drug free household. <Izabel Bradley - 10/14/18 21:10>
[2018-10-14 10:23] LABS: Anion Gap 7 meq/L (5-15); Blood Urea Nitrogen 9 mg/dL (7-18); Calcium 8.8 mg/dL (8.5-10.1); Carbon Dioxide 28.1 meq/L (21.0-32.0); Chloride 107 meq/L (98-107); Glomerular Filtration Rate Greater Than 89 mL/min (>89); Glucose,Random 105 mg/dL (74-106); Potassium 4.1 meq/L (3.5-5.1); Sodium 142 meq/L (136-145)
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
[2018-10-15] MEDS ORDERED: Pharmacy Ordered Lab Info OTHER ONE (05:45)
== END 2018-10-14 16:03 | disposition home or self-care (01) | DRG 854 ==
LOC: NEPE 23:32 → NEDA 10-05 03:32 → N04 10-05 10:06
PROVIDERS: ADMIT Family Medicine; ATTEND Family Medicine
CPT/HCPCS: 10160; 73060; 73080; 73220; 76937; 76942; 76999; 80048; 80053; 80074; 80202; 80307; 81001; 82565; 83605; 84703; 85025; 85651; 85652; 86140; 86403; 86803; 87015; 87040; 87070; 87086; 87102; 87116; 87147; 87149; 87186; 87205; 87206; 87389; 87522; 90765; 93308; 96365; 97110; 97166; 97535; 99285; A9585; J0131; J0690; J1100; J1580; J1885; J2175; J2250; J2270; J2370; J2405; J2704; J3010; J3370; J7030; J7050